=== PATIENT | female | born 1995 | race Caucasian/White ===

== ENCOUNTER 2019-01-15 13:43 | Emergency (ER) | payer BC, OTHER, SELFPAY ==
[2019-01-15 13:44] VITALS: BP 153/98; PULSE 100; RESP 16; TEMP 37.3; O2SAT 100; BMI 23.8
--- NOTE | 2019-01-15 14:24 | ED.DCSUM_ITS ---
- ER Visit Summary Date of Service: 01/15/19 Chief Complaint: Abdominal pain History of Present Illness: The patient is a 23 F history of ADHD. Complaining of diffuse abdominal pain. Said she had symptoms on Sunday that resolved and then returned today. Associated nausea and vomiting. No diarrhea. No fever. No constipation. No dysuria. No trauma. No prior abdominal surgeries. She denies any vaginal bleeding or discharge. Last menstrual period was approximately 1 week ago. Physical Examination: Vital signs are stable. She is afebrile. Temperature 99.2. She does not look septic or toxic. H EENT exam unremarkable. Neck nontender. Lungs clear to auscultation bilaterally. Heart regular rate rhythm rate about 95 no murmur. Abdomen soft. Nondistended. Normal bowel sounds. No peritoneal signs. Moving all 4 extremities. Calves nontender. Neurologically she is awake and alert with no focal motor deficit. Back exam nontender. Test Results: CBC normal white count of 5. Hemoglobin 14. Chemistries unremarkable gap of 8 creatinine 0.7. Liver enzymes normal. Lipase normal. UA normal. Serum brings test negative. Emergency Department Course and Treatment: Treated with IV fluids. She did not currently anything for pain or nausea. Treatment Plan: On repeat exam at 1520 patient's abdomen is benign. She has no right lower quadrant tenderness and really is not tender at this time. She is nondistended. There are no peritoneal signs. Abdomen is flat and nondistended. She and I discussed all of her normal test results. We discussed imaging which she deferred at this time. She does return if worse. Otherwise she will be instructed to follow-up with a local primary care physician. Disposition: Discharge Impression: Acute abdominal pain of uncertain etiology This note was generated with [employer] software. It may contain incorrect words, spelling, and punctuation that were not noted in review of the chart prior to signing ED Disposition - Plan for ED Patient: Referrals: Care Physician,No Primary [Primary Care Provider] -
[2019-01-15] MEDS: 0.9% Normal Saline 1,000 ML 999 ML IV (14:29)
[2019-01-15 14:31] LABS: Bacteria 0 SEEN /hpf (None Seen); Red Blood Cells-Urine 0 SEEN /hpf (0-5); White Blood Cells 0 SEEN /hpf (0-5)
[2019-01-15 14:32] LABS: Absolute Lymphocyte Count 2.01 X10^3/ul (0.83-4.51); Absolute Neutrophil Count 2.9 X10^3/uL (2.0-7.7); Basophil# 0.02 X10^3/uL; Basophil% 0.4 % (0-1); Eosinophil# 0.04 X10^3/uL; Eosinophils% 0.7 % (0-5); Hematocrit 42.3 % (37-47); Hemoglobin 14.4 g/dl (12.0-15.0); Lymphocyte # 2.01 X10^3/ul (4.0); Lymphocyte % 36.9 % (19-41); Mean Corpuscular Hgb 30.6 pg (27.0-32.0); Monocyte# 0.45 X10^3/uL; Monocyte% 8.3 % (0-10); Neutrophil # 2.91 X10^3/uL (2.7-7.7); Neutrophil % 53.5 % (47-70); Platelet Count 258 K/mm3 (150-450); RBC Distribution Width CV 12.7 % (11.6-14.6); RBC Distribution Width SD 41.4 fl (35.1-43.9); White Blood Count 5.4 K/mm3 (4.4-11.0)
[2019-01-15 14:32] LABS: Color, Urine Yellow (Yellow); Glucose, Dipstick Normal (Normal); Ketone-Dipstick Negative (Negative); Leukocyte Esterase-Dipstick Negative /ul (Negative); Nitrite-Dipstick Negative (Negative); Occult Blood-Urine Negative /ul (Negative); Protein-Dipstick Negative (Negative); Urine Bilirubin Dipstick Negative (Negative); Urine Clarity Clear (Clear); Urine Urobilinogen Normal (Normal)
[2019-01-15 14:33] LABS: POSITIVE COUNT NO; POSITIVE DIFFERENTIAL NO; POSITIVE MORPHOLOGY NO
[2019-01-15 14:42] LABS: AST(SGOT) 12 U/L (15-37); Alanine Aminotransfer ALT/SGPT 16 U/L (13-56); Albumin, Serum 4.2 g/dL (3.2-5.0); Alkaline Phosphatase 75 U/L (45-117); Anion Gap 8 (5-15); BUN 9 mg/dL (7-18); BUN/Creat Ratio 12.3 RATIO (10-20); Bilirubin, Direct 0.23 mg/dL (0.00-0.30); Calcium,Total 8.7 mg/dL (8.5-10.1); Chloride 102 mmol/L (98-107); Creatinine, Serum 0.73 mg/dL (0.55-1.02); EST Glomerular Filtration Rate 103 mL/min (>60); Est Glom Filt Rate - Afr Amer 125 mL/min (>60); Globulin 3.4 g/dL (2.2-4.2); Glucose 87 mg/dL (74-106); Lipase 77 U/L (73-393); Potassium 3.4 mmol/L (3.5-5.1); Protein, Total 7.6 g/dL (6.4-8.2); Sodium Level 138 mmol/L (136-145)
[2019-01-15 14:45] LABS: Mucous, Urine RARE /hpf (<or=2+); Squamous Epithelial Cells - UA 0-5 SEEN /hpf (5-10)
[2019-01-15 15:00] LABS: Pregnancy, Serum, hCG Quali. NEGATIVE Negative (0-9 Nonpreg)
--- NOTE | 2019-01-15 15:42 | ED.DEP ---
ED Disposition - Plan for ED Patient: Disposition: Home or Assisted Living Instructions: ED Abdominal Pain Unkn Cause Referrals: Maged Pinedo MD [STAFF PHYSICIAN] - 3-5 Days if not improving Additional Instructions: Return to the ER if increasing pain, fever or intractable vomiting. Otherwise follow-up with a local primary care physician. All your tests today including blood work and urinalysis were all normal.
[2019-01-15 15:56] VITALS: BP 118/81; PULSE 88; RESP 16; O2SAT 99
== END 2019-01-15 15:57 | disposition home or self-care (01) ==
PROVIDERS: Emergency Provider Emergency Medicine
DX: R10.9 Unspecified abdominal pain (principal); R11.2 Nausea with vomiting, unspecified; F90.9 Attention-deficit hyperactivity disorder, unspecified type; Z72.0 Tobacco use
CPT/HCPCS: 80048; 80076; 81001; 83690; 84703; 85025; 99283; J7030; A4216

== ENCOUNTER → 2020-06-10 12:52 | Outpatient (CLI) | payer OTHER, SELFPAY ==
[2020-06-10 11:59] VITALS: BMI 23.8
[2020-06-10 14:08] LABS: Absolute Lymphocyte Count 2.06 X10^3/uL (0.83-4.51); Absolute Neutrophil Count 7.8 X10^3/uL (2.0-7.7); Basophil# 0.03 X10^3/uL; Basophil% 0.3 % (0-1); Eosinophil# 0.03 X10^3/uL; Eosinophils% 0.3 % (0-5); Hematocrit 38.3 % (37-47); Hemoglobin 13.5 g/dL (12.0-15.0); Lymphocyte # 2.06 X10^3/ul (4.0); Lymphocyte % 19.4 % (19-41); Mean Corp Hgb Conc 35.2 g/dL (32-36); Mean Corpuscular Hgb 32.2 pg (27.0-32.0); Mean Corpuscular Volume 91.4 fL (81-99); Mean Platelet Vol. 11.1 fl (6.2-12.0); Monocyte# 0.62 X10^3/uL; Monocyte% 5.8 % (0-10); NRBC Flagged by Analyzer 0 % (0-5); Neutrophil # 7.82 X10^3/uL (2.7-7.7); Neutrophil % 73.6 % (47-70); Platelet Count 231 K/mm3 (150-450); RBC Distribution Width CV 11.2 % (11.6-14.6); RBC Distribution Width SD 37.6 fl (35.1-43.9); Red Blood Count 4.19 M/mm3 (4.2-5.4); White Blood Count 10.6 K/mm3 (4.4-11.0)
[2020-06-10 14:59] LABS: HIV - WCH Non-Reactive (Nonreactive); Hepatitis B Surface Antigen Non-Reactive (Nonreactive); Hepatitis C Antibody Non-Reactive (Nonreactive); Rubella IgG 110.8 IU/mL
[2020-06-10 19:18] LABS: Amphetamine Urine VISTA NEGATIVE (<1000 ng/mL); Barbiturate Urine VISTA NEGATIVE (< 200 ng/mL); Benzodiazepine Urine VISTA NEGATIVE (< 200 ng/mL); Cocaine Urine VISTA NEGATIVE (< 300 ng/mL); Ecstacy Urine VISTA NEGATIVE (< 500 ng/mL); Methadone Urine VISTA NEGATIVE (< 300 ng/mL); PCP Urine VISTA NEGATIVE (< 25 ng/mL); THC Urine VISTA NEGATIVE (< 50 ng/mL); Vista UDS pH Range 7
[2020-06-10 20:45] LABS: Chlamydia Trachomatis by PCR Negative (Negative); Neisserai gonorrhoeae by PCR Negative (Negative); Probe Check PASS; Sample Adequacy Control PASS; Specimen Processing Control PASS
[2020-06-17 02:24] LABS: Rapid Plasmin Reagin (RPR) NONREACTIVE (NONREACTIVE)
== END ==
PROVIDERS: Referring Provider Obstetrics & Gynecology; Visit Provider Obstetrics & Gynecology
DX: Z34.90 Encounter for supervision of normal pregnancy, unspecified, unspecified trimester (principal)
CPT/HCPCS: 36415; 80307; 85025; 86592; 86703; 86762; 86803; 86850; 86900; 86901; 87086; 87088; 87340; 87491; 87591

== ENCOUNTER → 2020-06-29 17:38 | Outpatient (CLI) | payer OTHER, SELFPAY ==
[2020-06-29 11:35] VITALS: BMI 23.8
== END ==
PROVIDERS: Referring Provider Obstetrics & Gynecology; Visit Provider Obstetrics & Gynecology
DX: Z11.59 Encounter for screening for other viral diseases (principal)
CPT/HCPCS: 87635; 94799; C9803; U0003

== ENCOUNTER → 2020-06-30 15:50 | Outpatient (CLI) | payer OTHER, SELFPAY ==
[2020-06-29 11:35] VITALS: BMI 23.8
--- NOTE | 2020-06-30 15:52 | US_ITS ---
STUDY: SUPERFICIAL ULTRASOUND - RIGHT AXILLA REASON FOR EXAM: Female, 25 years old. RT AXILLA MASS- X 3 DAYS SENSITIVE TECHNIQUE: A superficial ultrasound was performed with real-time and static matos-scale imaging. COMPARISON: None. FINDINGS: There is no demonstrated cystic or solid mass of the axilla. US/Ext Non Vasc Limited/Soft Tiss IMPRESSION: Negative for a discernible cystic or solid mass of the axilla. Electronically Signed: Karla Bennett MD at 19:30 EDT , Service support ,
== END ==
PROVIDERS: Referring Provider Nurse Practitioner Women's Health; Visit Provider Nurse Practitioner Women's Health
DX: R22.31 Localized swelling, mass and lump, right upper limb (principal)
CPT/HCPCS: 76882

== ENCOUNTER → 2020-08-09 13:54 | Outpatient (CLI) | payer OTHER, SELFPAY ==
[2020-08-09 11:45] VITALS: BMI 23.8
== END ==
PROVIDERS: Referring Provider Obstetrics & Gynecology; Visit Provider Obstetrics & Gynecology
DX: O26.899 Other specified pregnancy related conditions, unspecified trimester (principal); R10.9 Unspecified abdominal pain; Z3A.00 Weeks of gestation of pregnancy not specified
CPT/HCPCS: 87086

== ENCOUNTER → 2020-08-16 12:28 | Outpatient (CLI) | payer OTHER, SELFPAY ==
[2020-07-09 10:43] VITALS: BMI 23.8
[2020-08-09 11:45] VITALS: BMI 23.8
--- NOTE | 2020-08-16 12:29 | US_ITS ---
STUDY: SECOND AND THIRD TRIMESTER OBSTETRICAL ULTRASOUND REASON FOR EXAM: Female, 25 years old ANATOMY LMP: 04/01/2020. TECHNIQUE: Transabdominal TECHNICAL QUALITY: Adequate. PRIOR ULTRASOUND: None. FINDINGS: There is a single intrauterine fetus. The fetus is in a transverse lie with the head on the maternal right side. There is demonstrated cardiac activity with a heart rate of 144 bpm. There is a normal amniotic fluid volume. The largest amniotic fluid pocket measures 4.3 cm x 4.1 cm. The amniotic fluid index (KUNAL) is within normal limits. The placenta is posterior in location and is not low lying. There are Grade 0 placental changes. The cervix measures 3.6 cm in length. The adnexal regions are not visualized. BIOMETRY: BPD: 4.3 cm: 19 weeks, 0 days HC: 16.33 cm: 19 weeks, 0 days AC: 14.55 cm: 19 weeks, 6 days FL: 2.98 cm: 19 weeks, 1 days CI: 76% FL/BPD: 69% FL/HC: FL/AC: 20% HC/AC: 1.12 age by current US: 19 weeks, 2 days. LEANDRA by current US: 01/08/2021. Estimated weight: 295 grams, +/- 44 grams, 40 %. Age by LMP: 19 weeks, 3 days. LEANDRA by LMP: 01/07/2021. ANATOMY: Gender: Male Cranium: Normal lateral ventricles. Normal choroid plexus. Normal cerebellum. Normal cisterna magna. Normal face, nose and lips. Chest: Normal 4-chamber heart. Abdomen/Pelvis: Normal diaphragm. Normal stomach. Normal abdominal wall. Normal cord insertion. Normal 3 vessel cord. Minimal bilateral renal fullness measuring 1 mm. This is within normal limits. Normal bladder. Spine: Normal cervical spine. Normal thoracic spine. Normal lumbar spine. Normal sacrum. Extremities: Normal bilateral upper extremities. Normal bilateral lower extremities. US/OB Anatomy Scan IMPRESSION: Single live intrauterine gestation with a mean gestational age of 19 weeks and 2 days. Electronically Signed: Gokul Fajardo, at 14:52 EDT , Service support ,
== END ==
PROVIDERS: Referring Provider Obstetrics & Gynecology; Visit Provider Obstetrics & Gynecology
DX: O32.2XX0 Maternal care for transverse and oblique lie, not applicable or unspecified (principal); Z3A.19 19 weeks gestation of pregnancy
CPT/HCPCS: 76805

== ENCOUNTER → 2020-09-27 10:33 | Outpatient (CLI) | payer OTHER, SELFPAY ==
[2020-09-03 11:07] VITALS: BMI 23.8
[2020-09-27 11:03] LABS: Absolute Lymphocyte Count 1.84 X10^3/uL (0.83-4.51); Absolute Neutrophil Count 7.6 X10^3/uL (2.0-7.7); Basophil# 0.04 X10^3/uL; Basophil% 0.4 % (0-1); Eosinophil# 0.07 X10^3/uL; Eosinophils% 0.7 % (0-5); Hematocrit 35.6 % (37-47); Hemoglobin 11.7 g/dL (12.0-15.0); Lymphocyte # 1.84 X10^3/ul (4.0); Mean Corp Hgb Conc 32.9 g/dL (32-36); Mean Corpuscular Hgb 30.5 pg (27.0-32.0); Mean Platelet Vol. 10.3 fl (6.2-12.0); Monocyte# 0.61 X10^3/uL; NRBC Flagged by Analyzer 0 % (0-5); Neutrophil # 7.58 X10^3/uL (2.7-7.7); Neutrophil % 73.9 % (47-70); Platelet Count 224 K/mm3 (150-450); RBC Distribution Width CV 12.7 % (11.6-14.6); RBC Distribution Width SD 43.3 fl (35.1-43.9); Red Blood Count 3.83 M/mm3 (4.2-5.4); White Blood Count 10.2 K/mm3 (4.4-11.0)
[2020-09-27 11:13] LABS: Glucose Challenge Gest 1H 50g 100 mg/dL (70-140)
[2020-09-27 16:15] LABS: Amphetamine Urine VISTA NEGATIVE (<1000 ng/mL); Barbiturate Urine VISTA NEGATIVE (< 200 ng/mL); Benzodiazepine Urine VISTA NEGATIVE (< 200 ng/mL); Cocaine Urine VISTA NEGATIVE (< 300 ng/mL); Ecstacy Urine VISTA NEGATIVE (< 500 ng/mL); Methadone Urine VISTA NEGATIVE (< 300 ng/mL); PCP Urine VISTA NEGATIVE (< 25 ng/mL); THC Urine VISTA POSITIVE (< 50 ng/mL); Vista UDS pH Range 5
== END ==
PROVIDERS: Nurse Practitioner Women's Health; Referring Provider Obstetrics & Gynecology; Visit Provider Obstetrics & Gynecology
DX: O09.90 Supervision of high risk pregnancy, unspecified, unspecified trimester (principal)
CPT/HCPCS: 36415; 80307; 82950; 85025

== ENCOUNTER → 2020-10-19 17:26 | Outpatient (CLI) | payer OTHER, SELFPAY ==
[2020-09-27 11:04] VITALS: BMI 30.2
== END ==
PROVIDERS: Referring Provider Obstetrics & Gynecology; Visit Provider Obstetrics & Gynecology
DX: Z20.818 Contact with and (suspected) exposure to other bacterial communicable diseases (principal)
CPT/HCPCS: 87635; C9803; U0003

== ENCOUNTER → 2020-11-23 12:56 | Outpatient (CLI) | payer OTHER, SELFPAY ==
[2020-11-23 11:27] VITALS: BMI 33.5
[2020-11-23 13:52] LABS: Amphetamine Urine VISTA NEGATIVE (<1000 ng/mL); Barbiturate Urine VISTA NEGATIVE (< 200 ng/mL); Benzodiazepine Urine VISTA NEGATIVE (< 200 ng/mL); Cocaine Urine VISTA NEGATIVE (< 300 ng/mL); Ecstacy Urine VISTA NEGATIVE (< 500 ng/mL); Methadone Urine VISTA NEGATIVE (< 300 ng/mL); PCP Urine VISTA NEGATIVE (< 25 ng/mL); THC Urine VISTA NEGATIVE (< 50 ng/mL); Vista UDS pH Range 6
== END ==
PROVIDERS: Visit Provider Obstetrics & Gynecology
DX: Z87.898 Personal history of other specified conditions (principal)
CPT/HCPCS: 80307

== ENCOUNTER 2020-12-04 16:00 | Outpatient (CLI) | payer OTHER, SELFPAY ==
[2020-11-23 11:27] VITALS: BMI 33.5
[2020-12-04 16:19] VITALS: BMI 34.2
[2020-12-04 18:33] LABS: Bacteria 0 SEEN /hpf (None Seen); Mucous, Urine 0 SEEN /hpf (<or=2+); Red Blood Cells-Urine 0 SEEN /hpf (0-5)
[2020-12-04 18:47] LABS: Color, Urine Yellow (Yellow); Glucose, Dipstick Normal (Normal); Ketone-Dipstick Negative (Negative); Leukocyte Esterase-Dipstick 100 /ul (Negative); Nitrite-Dipstick Negative (Negative); Occult Blood-Urine Negative /ul (Negative); Protein-Dipstick Negative (Negative); Urine Bilirubin Dipstick Negative (Negative); Urine Clarity Sl. Cloudy (Clear); Urine Urobilinogen Normal (Normal)
[2020-12-04 18:57] LABS: White Blood Cells 0-5 SEEN /hpf (0-5); Yeast-Urine RARE /hpf (None Seen)
[2020-12-04 19:03] LABS: Squamous Epithelial Cells - UA 0-5 SEEN /hpf (5-10); Transitional Epithelial - Ur 0 SEEN /hpf (0-5)
--- NOTE | 2020-12-07 07:31 | OB.TRI.PN ---
Progress Notes Date of Service: 12/04/20 Progress Note: patient seen for contractions, ruled out for labor no cerivcal change, fingertip cervix. 140 moderate variability reactive no decelerations category I tracing [place]: irregular a/p dc home ft cervix dilation reviewed labor precautions Laboratory Studies: Laboratory Tests 12/04/20 Range/Units 18:20 Urine Color Yellow (Yellow) Urine Clarity Sl. Cloudy (Clear) Urine pH 7.0 (5.0 - 8.0) Ur Specific [place] 1.010 (1.002-1.030) Urine Protein Negative (Negative) mg/dl Urine Glucose (UA) Normal (Normal) mg/dl Urine Ketones Negative (Negative) mg/dl Urine Occult Blood Negative (Negative) /ul Urine Nitrite Negative (Negative) Urine Bilirubin Negative (Negative) mg/dL Urine Urobilinogen Normal (Normal) mg/dl Ur Leukocyte Esterase 100 H (Negative) /ul Urine RBC 0 SEEN (0-5) /hpf Urine WBC 0-5 SEEN (0-5) /hpf Ur Squamous Epith Cells 0-5 SEEN (5-10) /hpf Ur Transition Epith Cell 0 SEEN (0-5) /hpf Urine Bacteria 0 SEEN (None Seen) /hpf Urine Mucus 0 SEEN (<or=2+) /hpf Urine Yeast RARE (None Seen) /hpf - Problem List (1) Threatened labor Status: Acute Multi Select Codes - Urinary/Genital Urinary/Genital CPT Codes: 35398-45 non-stress test Interp
== END 2020-12-04 18:40 | disposition home or self-care (01) ==
LOC: WPOUT 16:08 → WP 16:09
PROVIDERS: Visit Provider Obstetrics & Gynecology
DX: O60.00 Preterm labor without delivery, unspecified trimester (principal); Z3A.00 Weeks of gestation of pregnancy not specified
CPT/HCPCS: 59025; 59050; 81001; 99218; G0378

== ENCOUNTER 2020-12-05 14:25 | Inpatient (IN) | payer OTHER, SELFPAY ==
[2020-12-04 16:19] VITALS: BMI 34.2
[2020-12-05] VITALS (49 sets, daily range): BP systolic 97–138; BP diastolic 54–91; PULSE 69–120; TEMP 36.1–37.8; O2SAT 91–100; BMI 33.5
[2020-12-05] MEDS: Ondansetron 8 MG Tablet 4 MG PO (04:41)
[2020-12-05] MEDS: Betamethasone/Betamethasone 30 MG/5 ML Vial 12 MG IM (04:41)
[2020-12-05] MEDS: Acetaminophen 500 MG Tablet 1000 MG PO ×2 (04:41→23:43)
[2020-12-05 06:08] LABS: ROM Internal Control Test YES-OK TO RESULT pt. (Internal QC); ROM Patient Test Negative (Negative)
[2020-12-05] MEDS: morphine 10 MG/ML Syringe 8 MG IM (06:50)
--- NOTE | 2020-12-05 09:14 | US_ITS ---
STUDY: SECOND AND THIRD TRIMESTER OBSTETRICAL ULTRASOUND - LIMITED REASON FOR EXAM: Female, 25 years old LEAKING OF FLUIDS -- NEG ROM -- GROWTH -- R/O LABOR LMP: 04/02/2020 PRIOR ULTRASOUND: 08/16/2020 TECHNIQUE: Transabdominal TECHNICAL QUALITY: Adequate. FINDINGS: There is a single intrauterine fetus. The fetus is in a cephalic presentation. There is demonstrated cardiac activity with a heart rate of 139 bpm. There is a normal amniotic fluid volume. The largest amniotic fluid pocket measures 3.6 cm. The amniotic fluid index (KUNAL) is 11.4 cm. The placenta is posterior in location and is not low lying. There are Grade 1 placental changes. The cervix measures 4.0 cm in length. BIOMETRY: BPD: 8.7 cm: 34 weeks, 6 days HC: 31.0 cm: 34 weeks, 4 days AC: 31.9 cm: 35 weeks, 5 days FL: 6.8 cm: 35 weeks, 1 days Age by LMP: 35 weeks, 2 days. LEANDRA by LMP: To 1221. age by current US: 34 weeks, 4 days. LEANDRA by current US: 01/12/2021. Estimated weight: 2719 grams, +/- 408 grams, 57 percentile. Gender: US/OB Limited With Biometrics IMPRESSION: Living intrauterine of 34 weeks 4 days as described above. Electronically Signed: Eric Camacho MD at 13:06 EST Tel , Service support ,
[2020-12-05] MEDS: Lactated Ringers 1,000 ML 999 ML IV (09:24)
--- NOTE | 2020-12-05 09:27 | OB.TRI.NOTE ---
- Problem List (1) premature rupture of membranes (PPROM) with onset of labor within 24 hours of rupture in third trimester, antepartum Status: Acute (2) Supervision of high-risk Status: Acute Qualifiers: Trimester: second trimester Qualified Code(s): O09.92 - Supervision of high risk , unspecified, second trimester Comment: PRR LEANDRA 01/07/21 boy Eitan BF Marciano (3) History of marijuana use Status: Acute Comment: quit in . random tox screens. +tox 09/27 (4) Anxiety during Status: Acute Comment: counseling encouraged, ordered vistaril PRN (5) Status: Acute Qualifiers: Weeks of gestation: 33 weeks Qualified Code(s): Z3A.33 - 33 weeks gestation of Comment: genetic, carrier, and ntd screening declined. NL anatomy History of Present Illness Reason For Visit: R/O LABOR Allergies OPIATES Adverse Reaction (Uncoded 12/05/20 03:48) Vomiting - Pertinent Past Medical History Medical History: Past Medical History (Last Reviewed 11/23/20 @ 11:27 by Joya Garrido) ADD (attention deficit disorder) Laboratory Studies: Laboratory Tests 12/05/20 Range/Units 05:45 Vag Amniotic Fld Detect Negative (Negative) Physical Exam Vitals: Vital Signs Temp Pulse BP Pulse Ox 97.5 F L 72 133/83 H 98 12/05/20 07:48 12/05/20 07:48 12/05/20 07:47 12/05/20 07:48 Impression/Plan patient monitored and then admitted for PPROM
[2020-12-05 09:36] LABS: Absolute Lymphocyte Count 0.87 X10^3/uL (0.83-4.51); Absolute Neutrophil Count 18.6 X10^3/uL (2.0-7.7); Basophil# 0.06 X10^3/uL; Basophil% 0.3 % (0-1); Eosinophil# 0.04 X10^3/uL; Eosinophils% 0.2 % (0-5); Hematocrit 38.7 % (37-47); Hemoglobin 12.8 g/dL (12.0-15.0); Lymphocyte # 0.87 X10^3/ul (4.0); Lymphocyte % 4.3 % (19-41); Mean Corp Hgb Conc 33.1 g/dL (32-36); Mean Corpuscular Hgb 28.3 pg (27.0-32.0); Mean Corpuscular Volume 85.4 fL (81-99); Monocyte# 0.31 X10^3/uL; Monocyte% 1.5 % (0-10); NRBC Flagged by Analyzer 0 % (0-5); Neutrophil # 18.64 X10^3/uL (2.7-7.7); Neutrophil % 91.8 % (47-70); Platelet Count 269 K/mm3 (150-450); RBC Distribution Width CV 12.1 % (11.6-14.6); RBC Distribution Width SD 37.5 fl (35.1-43.9); Red Blood Count 4.53 M/mm3 (4.2-5.4); White Blood Count 20.3 K/mm3 (4.4-11.0)
[2020-12-05] MEDS: HYDROmorphone 1 MG/ML Syringe IV (09:50)
[2020-12-05] MEDS: Terbutaline 1 MG/ML Vial 0.25 MG SC (09:50)
[2020-12-05] MEDS: Lactated Ringers 1,000 ML 150 ML IV (10:20)
[2020-12-05] MEDS: fentaNYL 100 MCG/2 ML Ampul 50 MCG IV (13:47)
[2020-12-05 14:25] LABS: ROM Internal Control Test YES-OK TO RESULT pt. (Internal QC)
[2020-12-05 14:26] LABS: ROM Patient Test POSITIVE (Negative)
[2020-12-05] MEDS: Lactated Ringers 500 ML 999 ML IV (14:30)
[2020-12-05] MEDS: fentaNYL-bupivacaine (epidural) 100 ML BAG EPIDURAL ×2 (15:48→19:57)
[2020-12-05] MEDS: Oxytocin 30 units/NS 500 ml 30 UNITS/500 ML IV.SOLN IV (16:50)
[2020-12-05] MEDS: Lactated Ringers 1,000 ML 200 ML IV ×2 (17:30→19:57)
[2020-12-05 18:48] LABS: Group B Strep DNA By PCR Negative (Negative); Internal Control PASS; Probe Check PASS; Specimen Processing Control PASS
--- NOTE | 2020-12-05 20:10 | HP.PCM_ITS ---
- Problem List (1) premature rupture of membranes (PPROM) with onset of labor within 24 hours of rupture in third trimester, antepartum Status: Acute (2) Supervision of high-risk Status: Acute Qualifiers: Trimester: second trimester Qualified Code(s): O09.92 - Supervision of high risk , unspecified, second trimester Comment: PRR LEANDRA 01/07/21 boy Eitan Tariq (3) History of marijuana use Status: Acute Comment: quit in . random tox screens. +tox 09/27 (4) Anxiety during Status: Acute Comment: counseling encouraged, ordered vistaril PRN (5) Status: Acute Qualifiers: Weeks of gestation: 33 weeks Qualified Code(s): Z3A.33 - 33 weeks gestation of Comment: genetic, carrier, and ntd screening declined. NL anatomy History Date of Admission: 12/05/20 Final LEANDRA: 01/07/21 Gestational age: 35 Weeks and 2 Days History of this : This is a 25 year-old, , at 35 weeks gestational age presents with regular contractions and clear rupture of membranes. Patient has had an uncomplicated until today with premature rupture of membranes. Patient has good movement and denies any fever or recent infection symptoms.. She r eceived a dose of Celestone this morning when she initially presented to triage. Medical History: Medical History (Last Reviewed 11/23/20 @ 11:27 by Joya Garrido) ADD (attention deficit disorder) F98.8 Allergies OPIATES Adverse Reaction (Uncoded 12/05/20 03:48) Vomiting Home Medications: Home Medications hydroxyzine pamoate 50 mg capsule 50 mg PO TID-QID PRN #30 cap 06/10/20 vitamin#30 30 mg iron-10 mg iron-folic acid 1 mg-omg3 capsule 1 cap PO DAILY 06/10/20 Smoking Status: Former smoker Alcohol: None Substance Use Type: Marijuana, Anxiety Medications NST - FHR Rate Baby A Baseline: 140 Variability:: Moderate Accelerations:: 15 x 15 Decelerations:: None NST Reactive:: Yes FHR Category:: Category I Uterine Activity:: q3-4 History Past Pregnancies: Past Pregnancies Delivery Date Name GA/ Weeks Outcome Route Wt Infant Sex Labor Length Anesthesia Delivery Location Provider FOB Labs: Mom's Microbiology 12/05/20 Unknown Genital vaginal Group B Streptococcus Culture - Pending 12/05/20 17:20 Mucosa - Nose SARS-CoV-2 Antigen (Rapid) - Final Mom's Problem List Problem Status Onset Code premature rupture of membranes (PPROM) with onset of labor within 24 hours of rupture in third trimester, antepartum Acute O42.013 Supervision of high-risk Acute O09.90 History of marijuana use Acute Z87.898 Anxiety during Acute O99.340, F41.9 Acute Z34.90 Mom's Labs & Results 12/05/20 12/05/20 12/05/20 05:45 09:23 09:23 WBC 20.3 H RBC 4.53 Hgb 12.8 Hct 38.7 MCV 85.4 MCH 28.3 MCHC 33.1 RDW Std Deviation 37.5 RDW Coeff of Jerald 12.1 Plt Count 269 MPV 11.0 Immature Gran % (Auto) 1.900 H Neut % (Auto) 91.8 H Lymph % (Auto) 4.3 L Emmet % (Auto) 1.5 Eos % (Auto) 0.2 Baso % (Auto) 0.3 Absolute Neuts (auto) 18.6 H Absolute Lymphs (auto) 0.87 Nucleated RBC % 0 Vag Amniotic Fld Detect Negative Group B Strep DNA Specimen Comment Blood Type B POSITIVE Antibody Screen NEGATIVE 12/05/20 12/05/20 13:30 17:20 WBC RBC Hgb Hct MCV MCH MCHC RDW Std Deviation RDW Coeff of Jerald Plt Count MPV Immature Gran % (Auto) Neut % (Auto) Lymph % (Auto) Emmet % (Auto) Eos % (Auto) Baso % (Auto) Absolute Neuts (auto) Absolute Lymphs (auto) Nucleated RBC % Vag Amniotic Fld Detect POSITIVE H Group B Strep DNA Negative Specimen Comment Not Reportable Blood Type Antibody Screen Course Did the patient receive Yes care? Labs Blood Type: B RH: POSITIVE RPR/VDRL/Syphilis Reactive Rubella status Immune HbSAg Negative Date Done: 06/10/20 Chlamydia Negative Gonorrhea Negative HIV/AIDS Non-Reactive Group B Strep: Collected on Admission Current Obstetrical History Gestational Diabetes No Incompetent Cervix No Infertility No IUGR No Macrosomia No Hypertension/Pre-eclampsia No Placenta Previa/Abruption No PTL/PROM No Uterine anomaly No Oligohydramnios No Polyhydramnios No Multiple gestation No Past Medical History Asthma No Diabetes No Hypertension No Heart disease No Mitral valve prolapse No Neurologic/Seizure disorder/ No Migraines Kidney disease No Liver disease No Varicosities No Clotting disorders/Hx of DVT No Thyroid Dysfunction No Other medical diseases No Psychiatric disorders Yes: ADD, anxiety Major trauma No Abnormal PAP smear No Sleep apnea No Mammogram in the last 2 years No Social History Marital Status: SINGLE Alleged father Marciano Hx Smoking Yes Smoking Status Former smoker Substance Use Type Marijuana,Anxiety Medications How long have you used Marijuana-17 years of age substances (years)? Anxiety medication-this What date/time did you last August use any of the above? Expected Delivery Method: Spontaneous Vaginal Review of Systems Constitutional: Denies: Fever, Malaise Eyes: Denies: Blurred vision, Vision Change HEENT: Denies: Head Aches, Visual Changes Cardiovascular: Denies: Chest Pain, Palpitations Respiratory: Denies: Cough, Shortness of Breath, Wheezing Gastrointestinal: Denies: Abdominal Pain, Diarrhea, Nausea, Vomiting Genitourinary: Denies: Dysuria, Hematuria Gynecological: Reports: Vaginal discharge Musculoskeletal: Denies: Joint Pain, Muscle pain Skin: Denies: Lesions, Rash Neurological: Denies: Blurred vision, Focal weakness, Headaches Psychiatric: Denies: Anxiety, Depression Endocrine: Denies: Heat/ Cold Intolerance Hematologic/ Lymphatic: Denies: Easy Bruising, Easy Bleeding Physical Exam Vitals: Vital Signs Temp Pulse BP Pulse Ox 99.4 F H 116 H 125/77 H 98 12/05/20 19:47 12/05/20 19:47 12/05/20 19:47 12/05/20 19:47 General: Alert, Cooperative, No apparent distress HEENT: Atraumatic, Normocephalic. Negative for: Thyromegaly, Lymphadenopathy Cardiovascular: Regular rate Lungs: Normal air movement Abdomen: Soft, Non Tender, Gravid Neurological: Deep Tendon Reflexes 2+/4 and Symmetrical, Neuro grossly intact. Negative for: Clonus [employer]: Normal external genitalia. Negative for: Vulvar lesions Estimated gestational size: Appropriate for gestational size Presentation: Cephalic Assessment/Plan All Active Problems (Last Reviewed 11/23/20 @ 11:27 by Joya Garrido) premature rupture of membranes (PPROM) with onset of labor within 24 hours of rupture in third trimester, antepartum (Acute) Supervision of high-risk (Acute) History of marijuana use (Acute) Anxiety during (Acute) (Acute) Supervision of high-risk (Resolved) Tobacco use complicating (Resolved) This is a 25 year-old, G 1P0, at 35 weeks gestational age presents with P PROM and active labor. Ampicillin azithromycin given, gentamicin also started due to borderline temp and borderline leukocytosis. No persistent fevers. Celestone given x1 for prematurity. Expectant management and Pitocin as needed.
--- NOTE | 2020-12-05 20:13 | OP.PCM_ITS ---
Problem List (1) premature rupture of membranes (PPROM) with onset of labor within 24 hours of rupture in third trimester, antepartum Status: Acute (2) Supervision of high-risk Status: Acute Qualifiers: Trimester: second trimester Qualified Code(s): O09.92 - Supervision of high risk , unspecified, second trimester Comment: PRR LEANDRA 01/07/21 boy Eitan Tariq (3) History of marijuana use Status: Acute Comment: quit in . random tox screens. +tox 09/27 (4) Anxiety during Status: Acute Comment: counseling encouraged, ordered vistaril PRN (5) Status: Acute Qualifiers: Weeks of gestation: 33 weeks Qualified Code(s): Z3A.33 - 33 weeks gestation of Comment: genetic, carrier, and ntd screening declined. NL anatomy Vaginal Delivery Maternal Presentation: Active Labor, Spontaneous Rupture of Membranes 25-year-old G1, P0 at 35 weeks with P PROM Method of Induction: Pitocin Medical Reason for Induction: Premature Rupture of Membranes Amniotic Membrane Rupture Type: Spontaneous Amniotic Fluid Description: Clear Final LEANDRA: 01/07/21 Gestational age: 35 Weeks and 2 Days Date of Procedure: 12/05/20 Pre-Operative Diagnosis: P PROM Post-Operative Diagnosis: Same Surgery/ Procedure Performed: Spontaneous Vaginal Delivery Type of Anesthesia: Epidural Description of Procedure: Patient began pushing and delivered the head in the FARHAD presentation. The head was delivered atraumatically and a loose nuchal cord ?1 was identified and the was delivered through. The anterior and posterior shoulders delivered without complication followed by the rest of the infant and the infant was placed on the maternal abdomen. Delayed cord clamping was employed for approximately 60 seconds. Cord was clamped and cut and gentle traction was applied to the cord and the placenta delivered spontaneously immediately following it was noted to be intact with three-vessel cord. The perineum and vagina were inspected and noted to have no laceration. EBL was 100 cc. Patient and infant tolerated delivery well. Presentation: FARHAD Placental Delivery Description: Spontaneous Placenta Disposition: [facility] Cord Vessel Description: 3 Vessels Cord Entanglement: Around neck x 1, loose Estimated Blood Loss: 100 A gender: Male Episiotomy Description: None Laceration: None Medications given after delivery: IV Pitocin Complications: None Multi Select Codes - Urinary/Genital Urinary/Genital CPT Codes: 19232 Vaginal Delivery [facility]
[2020-12-05] MEDS: Oxytocin 30 units/NS 500 ml 30 UNITS/500 ML IV.SOLN 334 UNITS IV (20:27)
--- NOTE | 2020-12-05 20:33 | DCINST_ITS ---
Discharge Diet: No Restrictions Discharge Activity: Return to Normal Activity, May not drive while taking narcotic pain medications., May Shower May resume sexual activity in: 4-6 weeks Call your doctor if your incision/area has: Continuous Slow Oozing, Sudden Increased Bleeding, Increased Pain/ Swelling, Increased Redness, Foul Smelling Discharge Additional Instructions: If you experience any of the following, contact your healthcare provider. * Bleeding that soaks a pad every hour for 2 hours * Fever 100.4 or higher * Unrelieved incision or abdominal pain * Swelling, redness, discharge or bleeding from your incision or episiotomy site * Your incision begins to separate * Problems urinating (including inability to urinate or burning while urinating). * Visual changes * Severe headache * Flu-like symptoms * Pain or redness in one of both of your breasts * Pain, warmth, tenderness or swelling in your legs, especially the calf area * Frequent nausea and vomiting * Symptoms of depression or anxiety If you experience any of the following, call 911 or go to the nearest Emergency Room. * Chest pain * Problems breathing * Seizure activity * Partial or complete paralysis of a body part, slurred speech, weakness or drooping of the face, or a sudden inability to walk or hold your balance Allergies/Adverse Reactions: Allergies OPIATES Adverse Reaction (Uncoded 12/05/20 03:48) Vomiting Medications to take at Discharge hydroxyzine pamoate 50 mg capsule 50 mg PO TID-QID PRN #30 cap 06/10/20 vitamin#30 30 mg iron-10 mg iron-folic acid 1 mg-omg3 capsule 1 cap PO DAILY 06/10/20 Naproxen [Naprosyn] 250 - 500 mg PO Q8H PRN PRN #30 tab 12/05/20 Oxycodone HCl/Acetaminophen [Percocet 5-325] 1 - 2 tablet PO Q6H PRN PRN 7 Days #10 tablet 12/05/20 The following prescriptions were given: Naproxen [Naprosyn] 250 - 500 mg PO Q8H PRN PRN #30 tab PRN Reason: MILD PAIN Transmission Status: Pending to [facility] Oxycodone HCl/Acetaminophen [Percocet 5-325] 1 - 2 tablet PO Q6H PRN PRN 7 Days #10 tablet PRN Reason: Pain Transmission Status: Sent to [facility] Please Follow Up With: Ailin Ceja MD - [phone] When: Call to make an appointment with your doctor in 6 weeks. If you had elevated Blood pressure or 4th degree laceration you will need to be seen in 2 weeks. Primary Care Physician: Care Physician,No Primary [Primary Care Provider] - Test Results: Test results from this visit will be discussed in further detail at your follow- up appointment, if applicable.
--- NOTE | 2020-12-05 21:24 | NURSING ---
dr chinchilla ruptured forebag 1700 12/05/20. clear fluid noted. moderate amount per previous RN.
[2020-12-05] MEDS: 0.9% Saline Lock 10 ML Syringe IV (23:09)
[2020-12-06 00:30] VITALS: BP 113/57; PULSE 107; RESP 18; TEMP 37.3
[2020-12-06 03:55] VITALS: BP 96/48; PULSE 89; RESP 16; TEMP 36.4
[2020-12-06] MEDS: Naproxen 250 MG Tablet 500 MG PO ×2 (04:25→18:28)
[2020-12-06 10:00] VITALS: BP 95/57; PULSE 88; RESP 18; TEMP 36.7; O2SAT 97
[2020-12-06] MEDS: Acetaminophen 500 MG Tablet 1000 MG PO ×2 (10:26→20:44)
[2020-12-06 13:25] VITALS: BP 97/60; PULSE 84; RESP 18; TEMP 36.7
--- NOTE | 2020-12-06 17:09 | PCM.PN.OB ---
Patient Problems: Active and Suspected Problems (Last Reviewed 11/23/20 @ 11:27 by Joya Garrido) History of marijuana use (Acute) quit in . random tox screens. +tox 09/27 Anxiety during (Acute) counseling encouraged, ordered vistaril PRN Subjective: Patient doing well without complaints. Tolerating PO. Ambulating and voiding without difficulty. feeding well. Denies chest pain, shortness of breath, calf pain/swelling, fevers, chills, lightheadedness. - Physical Exam Vitals/I&O's: Vital Signs Temp Pulse Resp BP Pulse Ox 98.1 F 88 18 95/57 L 97 12/06/20 10:00 12/06/20 10:00 12/06/20 10:00 12/06/20 10:00 12/06/20 10:00 Oxygen Delivery Method Room Air Weight: 189 lb Body Mass Index (BMI) 33.5 Intake and Output for Last 24 Hours 12/04/20 12/05/20 12/06/20 23:59 23:59 23:59 Intake Total 3801.90 / 3801.90 Output Total 1800 / 1800 650 / 650 Balance 2000. / 2000.90 -650 / -650 General: Alert, Oriented x3 Microbiology Past 72 Hours 12/05/20 17:20 Mucosa - Nose SARS-CoV-2 Antigen (Rapid) - Final Laboratory Results 12/05/20 17:20: Group B Strep DNA Negative, Specimen Comment Not Reportable Current Medications Acetaminophen (Acetaminophen 500 Mg Tablet) 1,000 mg PO Q8H PRN PRN PRN Reason: Pain Score 1-3 Last Admin: 12/06/20 10:26 Dose: 1,000 mg Documented by: Bisacodyl (Bisacodyl 10 Mg Suppository) 10 mg RECTAL UD PRN PRN Reason: If no BM Dibucaine (Dibucaine 30 Gm Tube) 1 applic TOPICAL TID PRN PRN; Protocol PRN Reason: Discomfort Hydrocortisone (Hydrocortisone 2.5% Crm) 1 applic TOPICAL TID PRN PRN; Protocol PRN Reason: Discomfort Methylergonovine Maleate (Methylergonovine 0.2 Mg/Ml Ampul) 0.2 mg IM X1 PRN PRN Reason: Excess bleeding/uterine atony Naproxen (Naproxen 250 Mg Tablet) 500 mg PO Q8H PRN PRN PRN Reason: Pain Score 1-3 Last Admin: 12/06/20 04:25 Dose: 500 mg Documented by: Ondansetron HCl (Ondansetron 4 Mg/2 Ml Vial) 4 mg IV Q4H PRN PRN PRN Reason: Nausea Oxycodone HCl (Oxycodone 5 Mg Tablet) 5 - 10 mg PO Q4H PRN PRN PRN Reason: Pain Score 4-10 Senna/Docusate Sodium (Senna/Docusate Sodium 1 Tablet) 1 - 2 tablet PO DAILY PRN PRN PRN Reason: Constipation Simethicone (Simethicone 80 Mg Tablet) 80 mg PO PCHS PRN PRN Reason: Indigestion/Stomach pain Sodium Chloride (0.9% Saline Lock 10 Ml Syringe) 5 - 15 ml IV UD PRN PRN Reason: SALINE FLUSH Last Admin: 12/05/20 23:09 Dose: 10 ml Documented by: Medical Necessity - Tobacco Use Smoking Status: Former smoker Assessment/Plan All Active Problems (Last Reviewed 11/23/20 @ 11:27 by Joya Garrido) History of marijuana use (Acute) Anxiety during (Acute) (Resolved) premature rupture of membranes (PPROM) with onset of labor within 24 hours of rupture in third trimester, antepartum (Resolved) Supervision of high-risk (Resolved) Supervision of high-risk (Resolved) Tobacco use complicating (Resolved) s/p PPD # 1 1. routine post delivery care 2. breast feeding- support given 3. rh positive 4. rubella immune
[2020-12-06 20:40] VITALS: BP 113/72; PULSE 92; RESP 16; TEMP 36.8
[2020-12-06] MEDS: Senna/Docusate Sodium 1 Tablet PO (20:44)
[2020-12-07 01:20] VITALS: BP 104/55; PULSE 87; RESP 16; TEMP 37
[2020-12-07] MEDS: Naproxen 250 MG Tablet 500 MG PO ×2 (02:41→14:11)
--- NOTE | 2020-12-07 08:02 | PCM.PN.OB ---
Patient Problems: Active and Suspected Problems (Last Reviewed 11/23/20 @ 11:27 by Joya Garrido) History of marijuana use (Acute) quit in . random tox screens. +tox 09/27 Anxiety during (Acute) counseling encouraged, ordered vistaril PRN Subjective: Patient doing well without complaints. Tolerating PO. Ambulating and voiding without difficulty. Breast feeding well. Denies chest pain, shortness of breath, calf pain/swelling, fevers, chills, lightheadedness. Baby with positive culture, need IV antibiotics. - Physical Exam Vitals/I&O's: Vital Signs Temp Pulse Resp BP Pulse Ox 98.6 F 87 16 104/55 L 97 12/07/20 01:20 12/07/20 01:20 12/07/20 01:20 12/07/20 01:20 12/06/20 10:00 Oxygen Delivery Method Room Air Weight: 189 lb Body Mass Index (BMI) 33.5 Intake and Output for Last 24 Hours 12/05/20 12/06/20 12/07/20 23:59 23:59 23:59 Intake Total 3801.90 / 3801.90 Output Total 1800 / 1800 650 / 650 Balance 2001.90 / 2000.90 -650 / -650 General: Alert, Oriented x3 Abdomen: Soft, Non Tender, Non-Distended, - - FF below U Microbiology Past 72 Hours 12/05/20 17:20 Mucosa - Nose SARS-CoV-2 Antigen (Rapid) - Final Current Medications Acetaminophen (Acetaminophen 500 Mg Tablet) 1,000 mg PO Q8H PRN PRN PRN Reason: Pain Score 1-3 Last Admin: 12/06/20 20:44 Dose: 1,000 mg Documented by: Bisacodyl (Bisacodyl 10 Mg Suppository) 10 mg RECTAL UD PRN PRN Reason: If no BM Dibucaine (Dibucaine 30 Gm Tube) 1 applic TOPICAL TID PRN PRN; Protocol PRN Reason: Discomfort Hydrocortisone (Hydrocortisone 2.5% Crm) 1 applic TOPICAL TID PRN PRN; Protocol PRN Reason: Discomfort Methylergonovine Maleate (Methylergonovine 0.2 Mg/Ml Ampul) 0.2 mg IM X1 PRN PRN Reason: Excess bleeding/uterine atony Naproxen (Naproxen 250 Mg Tablet) 500 mg PO Q8H PRN PRN PRN Reason: Pain Score 1-3 Last Admin: 12/07/20 02:41 Dose: 500 mg Documented by: Ondansetron HCl (Ondansetron 4 Mg/2 Ml Vial) 4 mg IV Q4H PRN PRN PRN Reason: Nausea Oxycodone HCl (Oxycodone 5 Mg Tablet) 5 - 10 mg PO Q4H PRN PRN PRN Reason: Pain Score 4-10 Senna/Docusate Sodium (Senna/Docusate Sodium 1 Tablet) 1 - 2 tablet PO DAILY PRN PRN PRN Reason: Constipation Last Admin: 12/06/20 20:44 Dose: 2 tablet Documented by: Simethicone (Simethicone 80 Mg Tablet) 80 mg PO PCHS PRN PRN Reason: Indigestion/Stomach pain Sodium Chloride (0.9% Saline Lock 10 Ml Syringe) 5 - 15 ml IV UD PRN PRN Reason: SALINE FLUSH Last Admin: 12/05/20 23:09 Dose: 10 ml Documented by: Medical Necessity - Tobacco Use Smoking Status: Former smoker Assessment/Plan All Active Problems (Last Reviewed 11/23/20 @ 11:27 by Joya Garrido) Threatened labor (Acute) History of marijuana use (Acute) Anxiety during (Acute) (Resolved) premature rupture of membranes (PPROM) with onset of labor within 24 hours of rupture in third trimester, antepartum (Resolved) Supervision of high-risk (Resolved) Supervision of high-risk (Resolved) Tobacco use complicating (Resolved) s/p PPD # 2 1. routine post delivery care 2. breast feeding- support given 3. rh positive 4. rubella immune 5. Hotel today
[2020-12-07 08:58] VITALS: BP 109/63; PULSE 89; RESP 16; TEMP 37.4; O2SAT 100
[2020-12-07] MEDS: Acetaminophen 500 MG Tablet 1000 MG PO (10:58)
[2020-12-07 14:01] VITALS: BP 108/64; PULSE 96; RESP 16; TEMP 36.8; O2SAT 99
[2020-12-07] MEDS: Senna/Docusate Sodium 1 Tablet PO (17:55)
--- NOTE | 2020-12-08 16:30 | CASEMGMT ---
Social Work Assessment Labor and Delivery Unit Patient Address: [address] [place] [address], [place] [id number] Phone number: [phone] Date of Referral: 12/06/2020 Time of Referral: 34 Referred By: Dr. Ailin Ceja Date of Intervention: 12/08/2020 Reason for Referral: Maternal history of marijuana use and history of ADD. History obtained from: Medical records and mother of baby (MOB) Cat Mackenzie Household composition: MOB and the father of baby (FOB) live together in a home. MOB reports home situation is safe and adequate. Patient's parent/guardian status: KATY is a 25-year-old single female involved with FOB Marciano Madrid for 2 years. MOB denies any form of abuse, control, or intimidation in this relationship. baby is the first child for both. baby is little boy by the name of Eitan Madrid, born on [birth year]/2020. Medical History: KATY is 1, para 0 now 1 after delivering Eitan. care started at 9 weeks gestation and regular thereafter. Delivery occurred at 35 weeks. weighed 5 pounds 14 ounces at . Apgars 8 and 9 at 1 and 5 minutes of life respectively. Educational Status: KATY is a high school diploma and some college classes. No issues with reading, writing, or learning comprehension reported or endorsed. Financial Status: KATY and the FOB both work at [employer]. No reported issues with finances. Supplies: MOB reports to have all needed supplies for the baby including a bassinet for sleeping, a pack and play, car seat, clothing, diapers, wipes. KATY is planning to breast-feed. Childcare/Caregiver(s): MOB will be the primary caregiver. FOB will help at home from work. Transportation: KATY denies any issues with transportation. Both parents drive. Programs/Agencies Involved: KATY is reports to be an active client at the counseling center seen Chevy Lorenz[facility] and psychiatric services. MOB denies any other agency involvement. Accepted information on WIC and help me grow. Children Services/Legal Issues: No reported history. Behavioral Health Issues: Mental Health History: MOB reports history of ADD and anxiety. MOB reports she typically takes a medication called Mydayis for the ADD. MOB reports plan to get back on this medication now that she is no longer , if this is what suggested by the counseling center. MOB was prescribed Vistaril during this to use as needed. No reports of any history of suicidal ideation or thoughts of harming others. Substance Use History: MOB reports history of alcohol use issues, but got sober prior to getting . MOB reports that the FOB was a big factor in MOB getting sober. MOB does have a history of using marijuana since the age of 17 with last reported use in August. MOB denies any other history of drug abuse such as heroin, meth, cocaine, or prescription drug abuse. MOB does have a history of smoking tobacco. Drug Screens: Maternal drug screen negative on 06/10/2020, positive for marijuana on 09/27/2020, negative on 11/23/2020. 's urine drug screen positive for opiates on 12/05/2020. From chart review it appears that MOB was given IM morphine on the morning of 12/05/2019 as well as Dilaudid.*MOB denies any opiate use during this .* Meconium drug screen for baby is pending. Family/Social Stressors: No reported stressors other than Covid pandemic. MOB does have a history of substance use issues, not currently in treatment for that. MOB however is in treatment for emotional health issues. Support Systems: MOB reports strong support from the FOB, MOB mother, MOB sisters, and FOB's parents. MOB reports she will have plenty of help upon home-going with the baby. Depression/Shaken Baby/Safe Sleeping information provided on shaken baby prevention and safe sleeping. Discussion about depression and anxiety, risk factors present, and importance of self-care and seeking help and support if symptoms arise. ASSESSMENT: Met with the MOB alone in her room. MOB pleasant and receptive to social work visit. Answered questions and were nondefensive play. Eye contact normal. Mood and affect congruent to content discussed. MOB reports to have needed supplies to care for the baby as well as adequate support at home going. MOB reports feel a loving connection to the baby already, and smiled when talking about the baby. Discussed MOB plans moving forward regarding substance use. MOB reports intent to abstain from illicit drug use. Educated to recommendation to not breast-feed if using marijuana. MOB voiced understanding. Educated MOB to the possibility of children services following up with this family depending on baby's drug screens. Allowed MOB opportunity to ask questions. MOB reports intent to follow-up with the counseling center regarding evaluation for medications regarding ADD. Accepted a [facility] resource list and packet on mood and anxiety disorders, which includes resources for additional support if needed. No voiced concerns by the nursing staff regarding mother/child bonding or interactions. Safe Plan of Care for related to substance use: Abstain from use. Should use tow picker back up again with not use in front of or around the child. Would have a sober person watch the baby. PLAN: MOB and will discharge home. Community resource information provided. Monitor for meconium drug screen results. Plan to call children services for substance exposed infant in utero. -RESHMA Livingston, KANDICE *Information documented in this assessment generated with [employer] System*
--- NOTE | 2020-12-09 14:15 | CASEMGMT ---
Social Work Labor and Delivery Unit Reason for intervention: Referral to [facility], . Spoke with Radha Parker at extension [phone]. Summary: Called [facility] and made report due to substance exposed infants. Reported positive urine drug screen in the for opiates, as well as MOB getting prescribed opiates on the morning of delivery. Reported pending meconium and maternal drug screens during . Brief maternal and infant histories provided. Plan: Mom and baby are home. Will monitor for meconium drug screen results and report to children services as indicated. -RESHMA Livingston, KANDICE *Information documented in this note generated via [employer] system*
== END 2020-12-07 17:55 | disposition home or self-care (01) | DRG 806 ==
LOC: WPOUT 14:32 → WP 14:32
PROVIDERS: Admitting Provider Obstetrics & Gynecology; Visit Provider Obstetrics & Gynecology
DX: O42.013 Preterm premature rupture of membranes, onset of labor within 24 hours of rupture, third trimester (principal); O99.12 Other diseases of the blood and blood-forming organs and certain disorders involving the immune mechanism complicating childbirth; Z37.0 Single live birth; D72.829 Elevated white blood cell count, unspecified; Z3A.35 35 weeks gestation of pregnancy; O69.81X0 Labor and delivery complicated by cord around neck, without compression, not applicable or unspecified; O99.334 Smoking (tobacco) complicating childbirth; F17.200 Nicotine dependence, unspecified, uncomplicated; F41.9 Anxiety disorder, unspecified; O99.344 Other mental disorders complicating childbirth; F98.8 Other specified behavioral and emotional disorders with onset usually occurring in childhood and adolescence
CPT/HCPCS: 36415; 59025; 59050; 76816; 84112; 85025; 86850; 86900; 86901; 87081; 87426; 87653; 96372; 99218; J7120; A4216; G0378; J0290; J0702

== ENCOUNTER → 2021-01-21 16:15 | Outpatient (CLI) | payer OTHER, SELFPAY ==
[2021-01-21 10:33] VITALS: BMI 29.0
[2021-01-25 16:13] LABS: HPV Reflexed? NOT INDICATED
== END ==
PROVIDERS: Referring Provider Obstetrics & Gynecology; Visit Provider Obstetrics & Gynecology
DX: Z12.4 Encounter for screening for malignant neoplasm of cervix (principal)
CPT/HCPCS: 88175; G0145

== ENCOUNTER 2022-01-26 13:34 | Outpatient (CLI) | payer OTHER, SELFPAY ==
[2022-01-30 22:06] LABS: Chlamydia By Nucleic Acid AMP Negative (Negative)
[2022-01-31 11:30] LABS: Gonococcus By Nucleic Acid AMP Negative (Negative)
== END 2022-01-26 23:59 | disposition home or self-care (01) ==
LOC: LABSPEC 13:36
PROVIDERS: Referring Provider Obstetrics & Gynecology; Visit Provider Obstetrics & Gynecology
DX: Z34.90 Encounter for supervision of normal pregnancy, unspecified, unspecified trimester (principal)
CPT/HCPCS: 87491; 87591

== ENCOUNTER 2022-01-31 12:13 | Outpatient (CLI) | payer OTHER, SELFPAY ==
[2022-01-31 12:50] LABS: Absolute Lymphocyte Count 2.33 X10^3/uL (0.83-4.51); Absolute Neutrophil Count 4.7 X10^3/uL (2.0-7.7); Basophil# 0.03 X10^3/uL; Basophil% 0.4 % (0-1); Eosinophil# 0.09 X10^3/uL; Eosinophils% 1.2 % (0-5); Hematocrit 40.7 % (37-47); Hemoglobin 14.2 g/dL (12.0-15.0); Lymphocyte # 2.33 X10^3/ul (0.83-4.51); Lymphocyte % 30.3 % (19-41); Mean Corp Hgb Conc 34.9 g/dL (32-36); Mean Corpuscular Hgb 31.1 pg (27.0-32.0); Mean Corpuscular Volume 89.1 fL (81-99); Mean Platelet Vol. 10.5 fl (6.2-12.0); Monocyte# 0.54 X10^3/uL; NRBC Flagged by Analyzer 0 % (0-5); Neutrophil # 4.66 X10^3/uL (2.7-7.7); Neutrophil % 60.7 % (47-70); Platelet Count 218 K/mm3 (150-450); RBC Distribution Width CV 11.9 % (11.6-14.6); RBC Distribution Width SD 38.8 fl (35.1-43.9); Red Blood Count 4.57 M/mm3 (4.2-5.4); White Blood Count 7.7 K/mm3 (4.4-11.0)
[2022-01-31 13:52] LABS: HIV - WCH Non-Reactive (Nonreactive); Hepatitis B Surface Antigen Non-Reactive (Nonreactive); Hepatitis C Antibody Non-Reactive (Nonreactive); Rubella IgG Reactive (Nonreactive); Syphilis Antibodies Non-reactive
[2022-01-31 15:10] LABS: Amphetamine Urine VISTA POSITIVE (<1000 ng/mL); Barbiturate Urine VISTA NEGATIVE (< 200 ng/mL); Benzodiazepine Urine VISTA NEGATIVE (< 200 ng/mL); Cocaine Urine VISTA NEGATIVE (< 300 ng/mL); Ecstacy Urine VISTA NEGATIVE (< 500 ng/mL); Methadone Urine VISTA NEGATIVE (< 300 ng/mL); PCP Urine VISTA NEGATIVE (< 25 ng/mL); THC Urine VISTA POSITIVE (< 50 ng/mL); Vista UDS pH Range 7
== END 2022-01-31 23:59 | disposition home or self-care (01) ==
LOC: LAB 12:14
PROVIDERS: Visit Provider Obstetrics & Gynecology
DX: Z34.90 Encounter for supervision of normal pregnancy, unspecified, unspecified trimester (principal)
CPT/HCPCS: 36415; 80307; 85025; 86703; 86762; 86780; 86803; 86850; 86900; 86901; 87086; 87340

== ENCOUNTER → 2022-05-01 | Outpatient (CLI) | payer OTHER, SELFPAY ==
[2022-05-01 13:59] LABS: Amphetamine Urine VISTA NEGATIVE (<1000 ng/mL); Barbiturate Urine VISTA NEGATIVE (< 200 ng/mL); Benzodiazepine Urine VISTA NEGATIVE (< 200 ng/mL); Cocaine Urine VISTA NEGATIVE (< 300 ng/mL); Ecstacy Urine VISTA NEGATIVE (< 500 ng/mL); Methadone Urine VISTA NEGATIVE (< 300 ng/mL); PCP Urine VISTA NEGATIVE (< 25 ng/mL); THC Urine VISTA NEGATIVE (< 50 ng/mL); Vista UDS pH Range 6
== END | disposition home or self-care (01) ==
LOC: LABSPEC 12:52
PROVIDERS: Visit Provider Nurse Practitioner Women's Health
DX: O99.322 Drug use complicating pregnancy, second trimester (principal); F12.90 Cannabis use, unspecified, uncomplicated; Z3A.15 15 weeks gestation of pregnancy
CPT/HCPCS: 80307

== ENCOUNTER → 2022-06-29 | Outpatient (CLI) | payer OTHER, SELFPAY ==
[2022-06-29 09:30] LABS: Absolute Lymphocyte Count 1.66 X10^3/uL (0.83-4.51); Absolute Neutrophil Count 7.8 X10^3/uL (2.0-7.7); Basophil# 0.03 X10^3/uL; Basophil% 0.3 % (0-1); Eosinophil# 0.11 X10^3/uL; Eosinophils% 1.1 % (0-5); Hematocrit 36.2 % (37-47); Hemoglobin 12.5 g/dL (12.0-15.0); Lymphocyte # 1.66 X10^3/ul (0.83-4.51); Lymphocyte % 16.1 % (19-41); Mean Corp Hgb Conc 34.5 g/dL (32-36); Mean Corpuscular Hgb 31.3 pg (27.0-32.0); Mean Corpuscular Volume 90.5 fL (81-99); Mean Platelet Vol. 10.4 fl (6.2-12.0); Monocyte# 0.61 X10^3/uL; Monocyte% 5.9 % (0-10); NRBC Flagged by Analyzer 0 % (0-5); Neutrophil # 7.81 X10^3/uL (2.7-7.7); Neutrophil % 75.6 % (47-70); Platelet Count 182 K/mm3 (150-450); RBC Distribution Width CV 12.4 % (11.6-14.6); White Blood Count 10.3 K/mm3 (4.4-11.0)
[2022-06-29 09:37] LABS: Glucose Challenge Gest 1H 50g 121 mg/dL (70-140)
--- NOTE | 2022-06-29 15:26 | US_ITS ---
EXAM: US , LIMITED CLINICAL INDICATION: placental placement TECHNIQUE: Real-time limited ultrasound of the maternal uterus with image documentation. This report was created using [employer] report generation technology. COMPARISON: None. FINDINGS: FETUS: Single live fetus in cephalic presentation. cardiac rate is 176 bpm. PLACENTA: Posterior placenta without previa. Inferior margin of the placenta is 2.3 cm from the internal cervical canal. AMNIOTIC FLUID: Amniotic fluid volume is normal. CERVIX: Cervix measures 4 cm in length. US/OB Limited (No Biometrics) IMPRESSION: 1. Single live treated gestation with status post gestational age of 28 weeks 2 days. 2. Posterior placenta without previa. Electronically Signed: Tobin Jauregui MD at 16:46 EDT ,
== END | disposition home or self-care (01) ==
PROVIDERS: Visit Provider Obstetrics & Gynecology
DX: O44.00 Complete placenta previa NOS or without hemorrhage, unspecified trimester (principal); Z3A.28 28 weeks gestation of pregnancy
CPT/HCPCS: 36415; 76815; 82950; 85025

== ENCOUNTER 2022-08-03 08:35 | Outpatient (CLI) | payer OTHER, SELFPAY ==
[2022-08-03 09:01] VITALS: BP 112/66; PULSE 107; TEMP 37; BMI 32.0
--- NOTE | 2022-08-03 09:28 | US_ITS ---
STUDY: SECOND AND THIRD TRIMESTER OBSTETRICAL ULTRASOUND - LIMITED REASON FOR EXAM: Female, 27 years old bleeding -- placenta check, cervical length and growth LMP: 12/13/2021. PRIOR ULTRASOUND: Comparison is made with prior study 06/29/2022. TECHNIQUE: Transabdominal and Transvaginal TECHNICAL QUALITY: Adequate. FINDINGS: There is a single intrauterine fetus. The fetus is in a cephalic presentation. There is demonstrated cardiac activity with a heart rate of 149 bpm. There is a normal amniotic fluid volume. The largest amniotic fluid pocket measures 4.2 cm. The amniotic fluid index (KUNAL) is 11.0 cm. The placenta is posterior in location and is not low lying. The tip of the placenta is at 2.7 cm from the internal os. There are Grade 1 placental changes. The cervix measures 4.9 cm in length. BIOMETRY: BPD: 8.39 cm: 33 weeks, 5 days HC: 31.4 cm: 35 weeks, 1 days AC: 29.42 cm: 33 weeks, 3 days FL: 6.28 cm: 32 weeks, 3 days Age by LMP: 33 weeks, 2 days. LEANDRA by LMP: 09/19/2022. age by current US: 34 weeks, 0 days. LEANDRA by current US: 09/14/2022. Estimated weight: 2165 grams, +/- 325 grams, 42 percentile. US/OB Limited With Biometrics IMPRESSION: Single live uterine gestation with a mean gestational age of 34 weeks. Electronically Signed: Gokul Fajardo MD at 12:51 EDT ,
[2022-08-03] MEDS: Lactated Ringers 1,000 ML 999 ML IV (09:40)
[2022-08-03 09:51] LABS: Hematocrit 36.9 % (37-47); Hemoglobin 12.4 g/dL (12.0-15.0); Mean Corp Hgb Conc 33.6 g/dL (32-36); Mean Corpuscular Hgb 29.8 pg (27.0-32.0); Mean Corpuscular Volume 88.7 fL (81-99); Mean Platelet Vol. 10.6 fl (6.2-12.0); Platelet Count 215 K/mm3 (150-450); RBC Distribution Width CV 12.5 % (11.6-14.6); RBC Distribution Width SD 40.3 fl (35.1-43.9); Red Blood Count 4.16 M/mm3 (4.2-5.4); White Blood Count 13.1 K/mm3 (4.4-11.0)
[2022-08-03 10:00] LABS: Fibrinogen 599 mg/dl (203-444)
[2022-08-03] MEDS: Betamethasone/Betamethasone 30 MG/5 ML Vial 12 MG IM (10:14)
[2022-08-03 11:46] VITALS: BP 120/68; PULSE 104; TEMP 36.6
[2022-08-03 13:24] LABS: Mucous, Urine 0 SEEN /hpf (<or=2+)
[2022-08-03 13:29] LABS: Color, Urine Yellow (Yellow); Glucose, Dipstick Normal (Normal); Ketone-Dipstick 5 mg/dl (Negative); Leukocyte Esterase-Dipstick 500 /ul (Negative); Nitrite-Dipstick Negative (Negative); Occult Blood-Urine 250 /ul (Negative); Protein-Dipstick 15 mg/dl (Negative); Urine Bilirubin Dipstick Negative (Negative); Urine Clarity Cloudy (Clear); Urine Urobilinogen Normal (Normal)
[2022-08-03 13:37] LABS: Squamous Epithelial Cells - UA 5-10 SEEN /hpf (5-10)
[2022-08-03 13:38] LABS: Bacteria 1+ /hpf (None Seen); Red Blood Cells-Urine 50-100 SEEN /hpf (0-5); White Blood Cells 50-100 SEEN /hpf (0-5)
--- NOTE | 2022-08-08 03:32 | OB.TRI.PN ---
Progress Notes Date of Service: 08/03/22 Progress Note: Patient presents for triage evaluation secondary to vb FHT: 150 Moderate variability reactive no decelerations category I tracing [place]: irregular Contractions Assessment and plan: nl us and labs, no cervical change Reactive NST, reassuring maternal and status patient discharged to home to follow-up []. See problem list details for additional plan information. Laboratory Studies: Laboratory Tests 08/03/22 08/03/22 08/03/22 Range/Units 13:10 09:40 09:40 WBC 13.1 H (4.4-11.0) K/mm3 RBC 4.16 L (4.2-5.4) M/mm3 Hgb 12.4 (12.0-15.0) g/dL Hct 36.9 L (37-47) % MCV 88.7 (81-99) fL MCH 29.8 (27.0-32.0) pg MCHC 33.6 (32-36) g/dL RDW Std Deviation 40.3 (35.1-43.9) fl RDW Coeff of Jerald 12.5 (11.6-14.6) % Plt Count 215 (150-450) K/mm3 MPV 10.6 (6.2-12.0) fl Fibrinogen (203-444) mg/dl Urine Color Yellow (Yellow) Urine Clarity Cloudy (Clear) Urine pH 7.0 (5.0 - 8.0) Ur Specific [place] 1.010 (1.002-1.030) Urine Protein 15 H (Negative) mg/dl Urine Glucose (UA) Normal (Normal) mg/dl Urine Ketones 5 H (Negative) mg/dl Urine Occult Blood 250 H (Negative) /ul Urine Nitrite Negative (Negative) Urine Bilirubin Negative (Negative) mg/dL Urine Urobilinogen Normal (Normal) mg/dl Ur Leukocyte Esterase 500 H (Negative) /ul Urine RBC 50-100 SEEN (0-5) /hpf Urine WBC 50-100 SEEN (0-5) /hpf Ur Squamous Epith Cells 5-10 SEEN (5-10) /hpf Urine Bacteria 1+ (None Seen) /hpf Urine Mucus 0 SEEN (<or=2+) /hpf Blood Type B POSITIVE Antibody Screen NEGATIVE 08/03/22 Range/Units 09:40 WBC (4.4-11.0) K/mm3 RBC (4.2-5.4) M/mm3 Hgb (12.0-15.0) g/dL Hct (37-47) % MCV (81-99) fL MCH (27.0-32.0) pg MCHC (32-36) g/dL RDW Std Deviation (35.1-43.9) fl RDW Coeff of Jerald (11.6-14.6) % Plt Count (150-450) K/mm3 MPV (6.2-12.0) fl Fibrinogen 599 H (203-444) mg/dl Urine Color (Yellow) Urine Clarity (Clear) Urine pH (5.0 - 8.0) Ur Specific [place] (1.002-1.030) Urine Protein (Negative) mg/dl Urine Glucose (UA) (Normal) mg/dl Urine Ketones (Negative) mg/dl Urine Occult Blood (Negative) /ul Urine Nitrite (Negative) Urine Bilirubin (Negative) mg/dL Urine Urobilinogen (Normal) mg/dl Ur Leukocyte Esterase (Negative) /ul Urine RBC (0-5) /hpf Urine WBC (0-5) /hpf Ur Squamous Epith Cells (5-10) /hpf Urine Bacteria (None Seen) /hpf Urine Mucus (<or=2+) /hpf Blood Type Antibody Screen Charges/Coding Multi Select Codes Visit Charges Office Visit/Consults: 63475 OV L3 Est Urinary/Genital Urinary/Genital CPT Codes: 68701-06 non-stress test Interp
== END 2022-08-03 13:40 | disposition home or self-care (01) ==
LOC: WPOUT 08:40 → WP 08:41
PROVIDERS: Referring Provider Obstetrics & Gynecology; Visit Provider Obstetrics & Gynecology
DX: O47.03 False labor before 37 completed weeks of gestation, third trimester (principal); Z3A.34 34 weeks gestation of pregnancy
CPT/HCPCS: 96360; 36415; 59025; 59050; 76816; 76817; 81001; 85027; 85384; 86850; 86900; 86901; 87086; 87088; 99218; J7120; G0378; J0702

== ENCOUNTER 2022-08-04 10:05 | Outpatient (CLI) | payer OTHER, SELFPAY ==
[2022-08-04 10:28] VITALS: BP 120/68; PULSE 100; TEMP 36.7
[2022-08-04 10:32] VITALS: BMI 34.2
[2022-08-04] MEDS: Betamethasone/Betamethasone 30 MG/5 ML Vial 12 MG IM (10:59)
[2022-08-04 12:09] VITALS: BP 141/95; PULSE 90
--- NOTE | 2022-08-08 03:41 | OB.TRI.PN ---
Progress Notes Date of Service: 08/04/22 Progress Note: celestone shot for prematuirty and vaginal bleedinfg
== END 2022-08-04 11:05 | disposition home or self-care (01) ==
LOC: WPOUT 10:11 → WP 10:12
PROVIDERS: Referring Provider Obstetrics & Gynecology; Visit Provider Obstetrics & Gynecology
DX: O26.899 Other specified pregnancy related conditions, unspecified trimester (principal); N93.9 Abnormal uterine and vaginal bleeding, unspecified; Z3A.00 Weeks of gestation of pregnancy not specified
CPT/HCPCS: 96372; 99218; G0378; J0702

== ENCOUNTER 2022-08-08 13:55 | Outpatient (CLI) | payer OTHER, SELFPAY ==
[2022-08-08 14:15] VITALS: BMI 33.3
[2022-08-08] MEDS: LACTATED RINGERS 500 ML 999 ML IV (14:44)
[2022-08-08] MEDS: Lactated Ringers 1,000 ML 125 ML IV (14:51)
[2022-08-08] MEDS: Indomethacin 25 MG Capsule 50 MG PO (14:52)
[2022-08-08 16:08] VITALS: PULSE 93; O2SAT 97
[2022-08-08 16:09] VITALS: BP 119/68; PULSE 93
[2022-08-08 16:26] LABS: Color, Urine Straw (Yellow); Glucose, Dipstick Normal (Normal); Ketone-Dipstick Negative (Negative); Leukocyte Esterase-Dipstick 500 /ul (Negative); Nitrite-Dipstick Negative (Negative); Occult Blood-Urine 10 /ul (Negative); Protein-Dipstick Negative (Negative); Specific Gravity, Urine 1.015 (1.002-1.030); Urine Bilirubin Dipstick Negative (Negative); Urine Clarity Clear (Clear); Urine Urobilinogen Normal (Normal)
--- NOTE | 2022-08-08 17:21 | HP.PCM.OB_ITS ---
HPI - General HPI Narrative ALBANIA ALFREDO, is a 27 y/o @ 34 weeks 0 days who presents to L&D after being seen in the office today for contractions. She was noted to be 1 cm dilated in the office and when she arrived on L&D she was having contractions every 2-4 minutes and still only 1 cm dilated. She has a h/o PTL and SROM at 35 weeks with her last . She was given 2 doses of steroids on /Sunday last week. Maternal Data Information LEANDRA Calculator Estimated Delivery Date Method Current WG Current Estimate 09/19/22 Ultrasound #2 34w 0d Other Estimates 09/28/22 Ultrasound #1 32w 5d PFSH PFS Medical History Acute frontal sinusitis, unspecified Acute pharyngitis, unspecified ADD (attention deficit disorder) Placenta previa Home Medications hydroxyzine pamoate 50 mg capsule (Vistaril) 50 mg PO TID-QID PRN anxiety #60 caps 07/10/22 [Rx Last Taken 08/02/22 17:30] vits no.126-ferrous fum 28 mg iron-folic acid 800 mcg tablet (Classic ) 1 tab PO DAILY 07/17/22 [History Last Taken 08/02/22 21:00] Tylenol 1,000 mg PO/SL PRN PRN Headache 08/03/22 [History Last Taken 08/02/22 12:00] miconazole nitrate 2 % vaginal cream (Monistat 7) 1 appful vaginal QHS Check with primary doctor 08/08/22 [History Last Taken 08/07/22 22:00] Allergy/AdvReac Type Severity Reaction Status Date / Time OPIATES AdvReac Vomiting Uncoded 08/04/22 10:33 Family History Unknown Heart disease Social History Smoking Status: Former smoker quit status: has quit before alcohol intake: current details: social/occasional substance use type: does not use caffeine: Yes what type of physical activity do you participate in: none seatbelt use: sometimes do you feel safe at home: Yes additional social history: Marciano[employer] History 2 Elective abortions Hx Para 1 Spontaneous abortions Hx # Term Pregnancies Ectopic pregnancies Hx # Pregnancies Multiple births # of living children 1 Past Pregnancies Del. Date Name GA/Weeks Outcome Route Bth Weight Infant Gen Labor Lgth Anesthesia Del Locatn Provider FOB 12/05/20 Rudolph 35 live - 5lbs 14oz Male epid ural [facility] SM Delivery Date: 12/05/20 Last Updated by: Claudia Domingo PPROM Visit Details Expected Delivery Route/Plan Labor Preferences- CB/BF classes: [] labor support person: [] labor intervention preferences: [] pain management options preferred: [] cut cord/dad catch: [] : [] PP control planned: [] discussed possible routes of delivery and associated risks: [] special requests: [] Plans Covid status: discussed Flu vaccine: discussed Tdap vaccine: given Rhogam: [na LARC form signed: movement and labor precautions reviewed. Problem list reviewed and updated with the most current plan of care details and appropriate orders placed. Relevant counseling for the gestational age provided. Continue routine care and follow up unless otherwise noted in visit notes/problem list details OB Flowsheet Initial Weight: 138 lb Date -?-?-?-?-?-?-?-?-?-?-?-?- EGA Weight BP Urine Prot -?-?-?-?-?-?-?-?-?-?-?-?- Glucose FHR FuHt Pres Dilation -?-?-?-?-?-?-?-?-?-?-?-?- Effaced St Visit Note 01/31/22 -?-?-?-?-?-?-?-?-?-?-?-?- 7w 0d 138 lb 2 oz (+2 oz) 104/66 -?-?-?-?-?-?-?-?-?-?-?-?- 108 -?-?-?-?-?-?-?-?-?-?-?-?- SM CRL 3.5mm GS 15 measuring 6weeks 03/01/22 -?-?-?-?-?-?-?-?-?-?-?-?- 11w 1d 143 lb 8 oz (+5 lb 8 oz) 107/74 Negative -?-?-?-?-?-?-?-?-?-?-?-?- Negative 190 -?-?-?-?-?-?-?-?-?-?-?-?- JV- new due date given with CRL today. li osman. 03/30/22 -?-?-?-?-?-?-?-?-?-?-?-?- 15w 2d 156 lb (+18 lb) 108/60 Negative -?-?-?-?-?-?-?-?-?--?-?-?- Negative 155 -?-?-?-?-?-?-?-?-?-?-?-?- SM- no vb lof go od fm n oregular ctx 05/01/22 -?-?-?-?-?-?-?-?-?-?-?-?- 19w 6d 162 lb 8 oz (+24 lb 8 oz) 110/68 Negative -?-?-?-?-?-?-?-?-?-?-?-?- Negative 161 -?-?-?-?-?-?-?-?-?-?-?-?- MH-No VB, LOF. G tiny FM. Just had anatomy scan:Boy. Told partial placenta previa. Told pelvic rest and watch for report 06/01/22 -?-?-?-?-?-?-?-?-?-?-?-?- 24w 2d 173 lb 6 oz (+35 lb 6 oz) 130/70 Negative -?-?-?-?-?-?-?-?-?-?-?-?- Negative 150 25 -?-?-?-?-?-?-?-?-?-?-?-?- SM- no vb lof go od fm no regualr ctx 06/29/22 -?-?-?-?-?-?-?-?-?-?-?-?- 28w 2d 181 lb 8 oz (+43 lb 8 oz) 105/69 Negative -?-?-?-?-?-?-?-?-?-?-?-?- Negative 155 30 -?-?-?-?-?-?-?-?-?-?-?-?- JV- normal gluco la, rpt scan is next today for placental position. no complaints. good FM 07/10/22 -?-?-?-?-?-?-?-?-?-?-?-?- 29w 6d 182 lb (+44 lb) 124/60 Negative -?-?-?-?-?-?-?-?-?-?-?-?- Negative 150 31 -?-?-?-?-?-?-?-?-?-?-?-?- SM- no vb lof go od fm no regular ctx start vistaril 07/17/22 -?-?-?-?-?-?-?-?-?-?-?-?- 30w 6d 188 lb (+50 lb) 112/84 Negative -?-?-?-?-?-?-?-?-?-?-?-?- Negative 145 31 0 -?-?-?-?-?-?-?-?-?-?-?-?- SM- no vb lof go od fm co irregular ctx 07/26/22 -?-?-?-?-?-?-?-?-?-?-?-?- 32w 1d 193 lb (+55 lb) 124/82 Negative -?-?-?-?-?-?-?-?-?-?-?-?- Negative 157 32 -?-?-?-?-?-?-?-?-?-?-?-?- JV- no complaint s today other than fatigue 08/08/22 -?-?-?-?-?-?-?-?-?-?-?-?- 34w 0d 196 lb (+58 lb) 122/80 -?-?-?-?-?-?-?-?-?-?-?-?- 1 -?-?-?-?-?-?-?-?-?-?-?-?- -Work in for C TX Q3-5 min since early AM. Good FM. To for evaluation. ROS Constitutional Constitutional: Denies change in weight, fatigue, fever(s), headache(s), poor appetite or weakness Eyes Eyes: Denies blurry vision, change in vision, seeing flashes or spots in vision ENT HEENT: Denies dizziness, headache(s), loss taste/smell or sore throat Cardiovascular Cardiovascular: Denies chest pain, dizziness, dyspnea, irregular heart rhythm, leg edema, palpitations, rapid heart rate or vomiting Respiratory/Chest Respiratory/Chest: Denies chest tightness, cough, dyspnea or breast pain Gastrointestinal Gastrointestinal: Denies abdominal pain, anorexia, constipation, cramping, diarrhea, hemorrhoids, vomiting or weight changes Genitourinary Genitourinary: Denies dysuria, flank pain, genital lesions, genital pain, urinary frequency or urinary urgency Musculoskeletal Musculoskeletal: Denies back pain, difficulty walking, joint pain, limited range of motion, muscle cramps or numbness Integumentary Integumentary: Denies lesions or unusual bruising Neurologic Neurologic: Denies abnormal movements, abnormal speech, dizziness, numbness, seizure-like activity or syncope Psychiatric Psychiatric: Denies anxiety, behavioral changes, change in appetite, change in libido, cognitive impairment, confusion, depression, difficulty concentrating, hallucinations or suicidal thoughts Endocrine Endocrinology: Denies excessive sweating, polydipsia or polyuria Hematologic/Lymphatic Hematologic/Lymphatic: Denies easy bleeding, easy bruising or lymphadenopathy Allergic/Immunologic Allergic/Immunologic: Denies itchy eyes, lip swelling, seasonal rhinorrhea, rhinitis, throat swelling, tongue swelling, eczemia, wheezing or asthma Vital Signs Vital Signs Vital Signs: 08/08/22 16:08 08/08/22 16:08 08/08/22 16:09 Pulse Rate 93 Blood Pressure 119/68 BP Systolic 119 BP Diastolic 68 Pulse Ox 97 08/08/22 16:09 Pulse Rate 93 Blood Pressure BP Systolic BP Diastolic Pulse Ox Weight Weight: 194 lb Body Mass Index (BMI) 33.3 Physical Exam Const alert, oriented x3, no apparent distress and healthy appearing General Appearance: cooperative; Negative for anxious HEENT normocephalic Face and Sinus: normal facial exam Eyes EOMs intact bilaterally and no scleral icterus General Eye: normal appearance of both eyes Neck full ROM and supple Lymph Lymphatic: no lymphadenopathy noted Chest Chest: abnormal inspection of the chest Resp normal respiratory effort Effort and Inspection: able to speak in complete sentences Cardio regular rate GI soft to palpation and non-tender Inspection: gravid Palpation: soft; Negative for tender external exam normal Back/Spine no CVA tenderness Extremity normal to inspection, full ROM and no clubbing, cyanosis or edema General Extremity: Negative for calf tenderness or edema Skin Lesions: no lesions Rashes: no rashes Psych mental status grossly normal Labs Labs Labs: Blood Type B POSITIVE Antibody Screen NEGATIVE Hct 36.9 % (37-47) L Hgb 12.4 g/dL (12.0-15.0) Obstetrics US Syphilis Total Ab Non-reactive Rubella IgG Antibody Reactive (Nonreactive) Hep Bs Antigen Non-Reactive (Nonreactive) Chlamydia DNA (KEAGAN) Negative (Negative) Neisseria gonorrhoeae DNA (KEAGAN) Negative (Negative) HIV 1&2 Antibody Non-Reactive (Nonreactive) Glucose 1 Hr 50 gm 121 mg/dL (70-140) Group B Strep DNA Negative (Negative) Rhogam given: No Assessment & Plan (1) Marijuana use: COMMENT: encouraged cessation. random tox (2) History of delivery: COMMENT: 36 week PPROM reocmmend serial cervical lengths (3) Supervision of high-risk : QUALIFIERS: Trimester: second trimester Qualified Code(s): O09.92 - Supervision of high risk , unspecified, second trimester COMMENT: PRR LEANDRA 09/26/22 Boy Trisha [facility] Eitan Marciano (4) : QUALIFIERS: Weeks of gestation: 34 weeks Qualified Code(s): Z3A.34 - 34 weeks gestation of COMMENT: nipt and carrier, ntd screen declined.anatomy nl (5) Anxiety and depression: COMMENT: prozac ordered/not taking. counseling encouraged. vistaril started 28 weeks (6) Threatened labor, antepartum: COMMENT: admitted 08/08/22 PLAN: plan to admit for observation for now. start IV Fluids, collect gbs and gc/ct give indocin 50 mg now then 25 tid procardia 10 xl now
[2022-08-08 17:41] VITALS: BP 114/62; PULSE 85
[2022-08-08] MEDS: NIFEdipine 10 MG Capsule PO (17:41)
[2022-08-08 17:58] LABS: Group B Strep DNA By PCR Negative (Negative); Internal Control PASS; Probe Check PASS; Specimen Processing Control PASS
[2022-08-08] MEDS: Ceftriaxone 1 GM/50 ML BAG IV (19:20)
[2022-08-08 19:46] VITALS: BP 109/67; PULSE 86; TEMP 36.7
[2022-08-08 20:25] LABS: Chlamydia Trachomatis by PCR Negative (Negative); Neisserai gonorrhoeae by PCR Negative (Negative); Probe Check PASS; Specimen Processing Control PASS
[2022-08-08 20:26] LABS: Sample Adequacy Control PASS
[2022-08-08] MEDS: Miconazole-7 Nitrate Cream 1 APPLIC VAGINAL (20:47)
[2022-08-08] MEDS: Indomethacin 25 MG Capsule PO (20:48)
== END 2022-08-08 21:00 | disposition home or self-care (01) ==
LOC: WPOUT 14:10 → WP 14:11
PROVIDERS: Referring Provider Obstetrics & Gynecology; Visit Provider Obstetrics & Gynecology
DX: O60.03 Preterm labor without delivery, third trimester (principal); O99.343 Other mental disorders complicating pregnancy, third trimester; F12.90 Cannabis use, unspecified, uncomplicated; Z87.891 Personal history of nicotine dependence; F41.9 Anxiety disorder, unspecified; F32.A Depression, unspecified; O99.323 Drug use complicating pregnancy, third trimester; Z3A.34 34 weeks gestation of pregnancy
CPT/HCPCS: 96365; 96361 ×4; 59025; 59050; 81002; 87081; 87086; 87088; 87426; 87491; 87591; 87653; 99218; J7120; G0378

== ENCOUNTER 2022-08-28 08:50 | Outpatient (CLI) | payer OTHER, SELFPAY ==
[2022-08-28 08:59] VITALS: BMI 34.3
[2022-08-28 09:04] VITALS: BP 125/78; PULSE 112
[2022-08-28 09:05] VITALS: TEMP 36
[2022-08-28 10:07] LABS: Hematocrit 37.8 % (37-47); Hemoglobin 12.4 g/dL (12.0-15.0); Mean Corp Hgb Conc 32.8 g/dL (32-36); Mean Corpuscular Volume 88.5 fL (81-99); Mean Platelet Vol. 10.9 fl (6.2-12.0); Platelet Count 189 K/mm3 (150-450); RBC Distribution Width CV 13.1 % (11.6-14.6); RBC Distribution Width SD 42.5 fl (35.1-43.9); Red Blood Count 4.27 M/mm3 (4.2-5.4); White Blood Count 11.3 K/mm3 (4.4-11.0)
[2022-08-28] MEDS: 0.9% Saline Lock 10 ML Syringe IV (10:33)
[2022-08-28 11:03] LABS: Fibrinogen 683 mg/dl (203-444)
--- NOTE | 2022-08-30 11:44 | PCM.PN.OB ---
Objective Data Objective Data Vital Signs: Vital Signs Temp Pulse BP 96.8 F L 112 H 125/78 H 08/28/22 09:05 08/28/22 09:04 08/28/22 09:04 Weight: 200 lb Body Mass Index (BMI) 34.3 Lab / Micro Data Result Diagrams: 08/28/22 09:45
--- NOTE | 2022-08-30 11:46 | OB.TRI.HP_ITS ---
HPI - General HPI Narrative ALBANIA ALFREDO, is a 27 F who presents with vaginal bleeding and contraction. she denies lof admits good fm. no cervical acid changer the course of several hours and ctx intensity stable. Maternal Data Information LEANDRA Calculator Estimated Delivery Date Method Current WG Current Estimate 09/19/22 Ultrasound #2 37w 1d Other Estimates 09/28/22 Ultrasound #1 35w 6d PFSH PFSH Medical History Acute frontal sinusitis, unspecified Acute pharyngitis, unspecified ADD (attention deficit disorder) Placenta previa Home Medications hydroxyzine pamoate 50 mg capsule (Vistaril) 50 mg PO TID-QID PRN anxiety #60 caps 07/10/22 [Rx Last Taken 08/27/22 17:00] vits no.126-ferrous fum 28 mg iron-folic acid 800 mcg tablet (Classic ) 1 tab PO DAILY 07/17/22 [History Last Taken 08/27/22 22:00] Tylenol 1,000 mg PO/SL PRN PRN Headache 08/03/22 [History Last Taken 08/26/22 19:00] Allergy/AdvReac Type Severity Reaction Status Date / Time Opioids - Morphine Analogues AdvReac Vomiting Verified 08/28/22 09:34 Family History Unknown Heart disease Social History Smoking Status: Former smoker quit status: has quit before alcohol intake: current details: social/occasional substance use type: does not use caffeine: Yes what type of physical activity do you participate in: none seatbelt use: sometimes do you feel safe at home: Yes additional social history: Marciano- Both works [employer] History 2 Elective abortions Hx Para 1 Spontaneous abortions Hx # Term Pregnancies Ectopic pregnancies Hx # Pregnancies Multiple births # of living children 1 Past Pregnancies Del. Date Name GA/Weeks Outcome Route Bth Weight Infant Gen Labor Lgth Anesthesia Del Locatn Provider FOB 12/05/20 Rudolph 35 live - 5lbs 14oz Male epid ural [facility] Delivery Date: 12/05/20 Last Updated by: Claudia Domingo PPROM Visit Details Expected Delivery Route/Plan Labor Preferences- CB/BF classes: [] labor support person: [] labor intervention preferences: [] pain management options preferred: [] cut cord/dad catch: [] : [] PP control planned: [] discussed possible routes of delivery and associated risks: [] special requests: [] Plans Covid status: discussed Flu vaccine: discussed Tdap vaccine: given Rhogam: [na LARC form signed: movement and labor precautions reviewed. Problem list reviewed and updated with the most current plan of care details and appropriate orders placed. Relevant counseling for the gestational age provided. Continue routine care and follow up unless otherwise noted in visit notes/problem list details OB Flowsheet Initial Weight: 138 lb Date -?-?-?-?-?-?-?-?-?-?-?-?- EGA Weight BP Urine Prot -?-?-?-?-?-?-?-?-?-?-?-?- Glucose FHR FuHt Pres Dilation -?-?-?-?-?-?-?-?-?-?-?-?- Effaced St Visit Note 01/31/22 -?-?-?-?-?-?-?-?-?-?-?-?- 7w 0d 138 lb 2 oz (+2 oz) 104/66 -?-?-?-?-?-?-?-?-?-?-?-?- 108 -?-?-?-?-?-?-?-?-?-?-?-?- SM CRL 3.5mm GS 15 measuring 6weeks 03/01/22 -?-?-?-?-?-?-?-?-?-?-?-?- 11w 1d 143 lb 8 oz (+5 lb 8 oz) 107/74 Negative -?-?-?-?-?-?-?-?-?-?-?-?- Negative 190 -?-?-?-?-?-?-?-?-?-?-?-?- JV- new due date given with CRL today. li ordered. 03/30/22 -?-?-?-?-?-?-?-?-?-?-?-?- 15w 2d 156 lb (+18 lb) 108/60 Negative -?-?-?-?-?-?-?-?-?-?-?-?- Negative 155 -?-?-?-?-?-?-?-?-?-?-?-?- SM- no vb lof go od fm n oregular ctx 05/01/22 -?-?-?-?-?-?-?-?-?-?-?-?- 19w 6d 162 lb 8 oz (+24 lb 8 oz) 110/68 Negative -?-?-?-?-?-?-?-?-?-?-?-?- Negative 161 -?-?-?-?-?-?-?-?-?-?-?-?- MH-No VB, LOF. G ood FM. Just had anatomy scan:Boy. Told partial placenta previa. Told pelvic rest and watch for report 06/01/22 -?-?-?-?--?-?-?-?-?-?-?-?- 24w 2d 173 lb 6 oz (+35 lb 6 oz) 130/70 Negative -?-?-?-?-?-?-?-?-?-?-?-?- Negative 150 25 -?-?-?-?-?-?-?-?-?-?-?-?- SM- no vb lof go od fm no regualr ctx 06/29/22 -?-?-?-?-?-?-?-?-?-?-?-?- 28w 2d 181 lb 8 oz (+43 lb 8 oz) 105/69 Negative -?-?-?-?-?-?-?-?-?-?-?-?- Negative 155 30 -?-?-?-?-?-?-?-?-?-?-?-?- JV- normal gluco la, rpt scan is next today for placental position. no complaints. good FM 07/10/22 -?-?-?-?-?-?-?-?-?-?-?-?- 29w 6d 182 lb (+44 lb) 124/60 Negative -?-?-?-?-?-?-?-?-?-?-?-?- Negative 150 31 -?-?-?-?-?-?-?-?-?-?-?-?- SM- no vb lof go od fm no regular ctx start vistaril 07/17/22 -?-?-?-?-?-?-?-?-?-?-?-?- 30w 6d 188 lb (+50 lb) 112/84 Negative -?-?-?-?-?-?-?-?-?-?-?-?- Negative 145 31 0 -?-?-?-?-?-?-?-?-?-?-?-?- SM- no vb lof go od fm co irregular ctx 07/26/22 -?-?-?-?-?-?-?-?-?-?-?-?- 32w 1d 193 lb (+55 lb) 124/82 Negative -?-?-?-?-?-?-?-?-?-?-?-?- Negative 157 32 -?-?-?-?-?-?-?-?-?-?-?-?- JV- no complaint s today other than fatigue 08/08/22 -?-?-?-?-?-?-?-?-?-?-?-?- 34w 0d 196 lb (+58 lb) 122/80 -?-?-?-?-?-?-?-?--?-?-?-?- 1 -?-?-?-?-?-?-?-?-?-?-?-?- -Work in for C TX Q3-5 min since early AM. Good FM. To for evaluation. 08/10/22 -?-?-?-?-?-?-?-?-?-?-?-?- 34w 2d 194 lb (+56 lb) 120/82 Negative -?-?-?-?-?-?-?-?-?-?-?-?- Negative 145 1 -?-?-?-?-?-?-?-?-?-?-?-?- SM- no vb lof go od fm no regular ctx 08/15/22 -?-?-?-?-?-?-?-?-?-?-?-?- 35w 0d 197 lb 8 oz (+59 lb 8 oz) 122/77 Negative -?-?-?-?-?-?-?-?-?-?-?-?- Negative 150 35 1 -?-?-?-?-?-?-?-?-?-?-?-?- 0 -3 JV- no lof , vaginal bleeding, or dec fm. PTL precautions discussed. 08/24/22 -?-?-?-?-?-?-?-?-?-?--?-?- 36w 2d 199 lb 2 oz (+61 lb 2 oz) 110/72 Negative -?-?-?-?-?-?-?-?-?-?-?-?- Negative 145 37 0.5 -?-?-?-?-?-?-?-?-?-?-?-?- -3 JV- pt s tates that she has discharge and bleeding. on exam there is a moderate to severe yeast infection. rx for terconazole cream + diflucan given. 08/28/22 -?-?--?-?-?-?-?-?-?-?-?-?- 36w 6d 200 lb (+62 lb) 125/78 -?-?-?-?-?-?-?-?-?-?-?-?- -?-?-?-?-?-?-?-?-?-?-?-?- ROS Constitutional Constitutional: Reports systems reviewed and no addt'l complaints, except as documented and as per HPI ENT HEENT: Reports systems reviewed and no addt'l complaints, except as documented Cardiovascular Cardiovascular: Reports systems reviewed and no addt'l complaints, except as documented Respiratory/Chest Respiratory/Chest: Reports systems reviewed and no addt'l complaints, except as documented Gastrointestinal Gastrointestinal: Reports as per HPI Genitourinary Genitourinary: Reports as per HPI Musculoskeletal Musculoskeletal: Reports systems reviewed and no addt'l complaints, except as documented Integumentary Integumentary: Reports systems reviewed and no addt'l complaints, except as documented Neurologic Neurologic: Reports systems reviewed and no addt'l complaints, except as documented Physical Exam Const alert, oriented x3 and no apparent distress HEENT Head and Scalp: normocephalic and atraumatic Neck full ROM and no lymphadenopathy Chest inspection of chest normal Resp normal respiratory effort GI GI Narrative: gravid, abdomen nontender, AGA Manual OB Exam: dilated, effaced and station NST FHR Rate Baby A Baseline: 140 Variability:: Moderate Accelerations:: 15 x 15 Decelerations:: None NST Reactive:: Yes FHR Category:: Category I Uterine Activity:: regular q 2-4 Assessment & Plan (1) Threatened labor, antepartum: COMMENT: s/p steroids at 33 weeks. PLAN: Plan no cervical change. nst reactive dc home ptl precautions Charges/Coding Multi Select Codes Visit Charges Office Visit/Consults: 65688 OV L3 Est Urinary/Genital Urinary/Genital CPT Codes: 69194-07 non-stress test Interp
--- NOTE | 2022-08-30 11:46 | OB.TRI.NOTE ---
HPI - General HPI Narrative ALBANIA ALFREDO, is a 27 F who presents with vaginal bleeding and contraction. she denies lof admits good fm. no cervical exchange trouble shooter the course of several hours and ctx intensity stable. Maternal Data Information LEANDRA Calculator Estimated Delivery Date Method Current WG Current Estimate 09/19/22 Ultrasound #2 37w 1d Other Estimates 09/28/22 Ultrasound #1 35w 6d PFSH PFSH Medical History Acute frontal sinusitis, unspecified Acute pharyngitis, unspecified ADD (attention deficit disorder) Placenta previa Home Medications hydroxyzine pamoate 50 mg capsule (Vistaril) 50 mg PO TID-QID PRN anxiety #60 caps 07/10/22 [Rx Last Taken 08/27/22 17:00] vits no.126-ferrous fum 28 mg iron-folic acid 800 mcg tablet (Classic ) 1 tab PO DAILY 07/17/22 [History Last Taken 08/27/22 22:00] Tylenol 1,000 mg PO/SL PRN PRN Headache 08/03/22 [History Last Taken 08/26/22 19:00] Allergy/AdvReac Type Severity Reaction Status Date / Time Opioids - Morphine Analogues AdvReac Vomiting Verified 08/28/22 09:34 Family History Unknown Heart disease Social History Smoking Status: Former smoker quit status: has quit before alcohol intake: current details: social/occasional substance use type: does not use caffeine: Yes what type of physical activity do you participate in: none seatbelt use: sometimes do you feel safe at home: Yes additional social history: Marciano- Both works [employer] History 2 Elective abortions Hx Para 1 Spontaneous abortions Hx # Term Pregnancies Ectopic pregnancies Hx # Pregnancies Multiple births # of living children 1 Past Pregnancies Del. Date Name GA/Weeks Outcome Route Bth Weight Infant Gen Labor Lgth Anesthesia Del Locatn Provider FOB 12/05/20 Rudolph 35 live - 5lbs 14oz Male epidural [facility] Delivery Date: 12/05/20 Last Updated by: Claudia Domingo PPROM Visit Details Expected Delivery Route/Plan Labor Preferences- CB/BF classes: [] labor support person: [] labor intervention preferences: [] pain management options preferred: [] cut cord/dad catch: [] : [] PP control planned: [] discussed possible routes of delivery and associated risks: [] special requests: [] Plans Covid status: discussed Flu vaccine: discussed Tdap vaccine: given Rhogam: [na LARC form signed: movement and labor precautions reviewed. Problem list reviewed and updated with the most current plan of care details and appropriate orders placed. Relevant counseling for the gestational age provided. Continue routine care and follow up unless otherwise noted in visit notes/problem list details OB Flowsheet Initial Weight: 138 lb Date <del>?</del> EGA Weight BP Urine Prot <del>?</del> Glucose FHR FuHt Pres Dilation <del>?</del> Effaced St Visit Note 01/31/22 <del>?</del> 7w 0d 138 lb 2 oz (+2 oz) 104/66 <del>?</del> 108 <del>?</del> SM CRL 3.5mm GS 15 measuring 6weeks 03/01/22 <del>?</del> 11w 1d 143 lb 8 oz (+5 lb 8 oz) 107/74 Negative <del>?</del> Negative 190 <del>?</del> JV- new due date given with CRL today. li ordered. 03/30/22 <del>?</del> 15w 2d 156 lb (+18 lb) 108/60 Negative <del>?</del> Negative 155 <del>?</del> SM- no vb lof good fm n oregular ctx 05/01/22 <del>?</del> 19w 6d 162 lb 8 oz (+24 lb 8 oz) 110/68 Negative <del>?</del> Negative 161 <del>?</del> MH-No VB, LOF. Good FM. Just had anatomy scan:Boy. Told partial placenta previa. Told pelvic rest and watch for report 06/01/22 <del>?</del> 24w 2d 173 lb 6 oz (+35 lb 6 oz) 130/70 Negative <del>?</del> Negative 150 25 <del>?</del> SM- no vb lof good fm no regualr ctx 06/29/22 <del>?</del> 28w 2d 181 lb 8 oz (+43 lb 8 oz) 105/69 Negative <del>?</del> Negative 155 30 <del>?</del> JV- normal glucola, rpt scan is next today for placental position. no complaints. good FM 07/10/22 <del>?</del> 29w 6d 182 lb (+44 lb) 124/60 Negative <del>?</del> Negative 150 31 <del>?</del> SM- no vb lof good fm no regular ctx start vistaril 07/17/22 <del>?</del> 30w 6d 188 lb (+50 lb) 112/84 Negative <del>?</del> Negative 145 31 0 <del>?</del> SM- no vb lof good fm co irregular ctx 07/26/22 <del>?</del> 32w 1d 193 lb (+55 lb) 124/82 Negative <del>?</del> Negative 157 32 <del>?</del> JV- no complaints today other than fatigue 08/08/22 <del>?</del> 34w 0d 196 lb (+58 lb) 122/80 <del>?</del> 1 <del>?</del> -Work in for CTX Q3-5 min since early AM. Good FM. To for evaluation. 08/10/22 <del>?</del> 34w 2d 194 lb (+56 lb) 120/82 Negative <del>?</del> Negative 145 1 <del>?</del> SM- no vb lof good fm no regular ctx 08/15/22 <del>?</del> 35w 0d 197 lb 8 oz (+59 lb 8 oz) 122/77 Negative <del>?</del> Negative 150 35 1 <del>?</del> 0 -3 JV- no lof, vaginal bleeding, or dec fm. PTL precautions discussed. 08/24/22 <del>?</del> 36w 2d 199 lb 2 oz (+61 lb 2 oz) 110/72 Negative <del>?</del> Negative 145 37 0.5 <del>?</del> -3 JV- pt states that she has discharge and bleeding. on exam there is a moderate to severe yeast infection. rx for terconazole cream + diflucan given. 08/28/22 <del>?</del> 36w 6d 200 lb (+62 lb) 125/78 <del>?</del> <del>?</del> ROS Constitutional Constitutional: Reports systems reviewed and no addt'l complaints, except as documented and as per HPI ENT HEENT: Reports systems reviewed and no addt'l complaints, except as documented Cardiovascular Cardiovascular: Reports systems reviewed and no addt'l complaints, except as documented Respiratory/Chest Respiratory/Chest: Reports systems reviewed and no addt'l complaints, except as documented Gastrointestinal Gastrointestinal: Reports as per HPI Genitourinary Genitourinary: Reports as per HPI Musculoskeletal Musculoskeletal: Reports systems reviewed and no addt'l complaints, except as documented Integumentary Integumentary: Reports systems reviewed and no addt'l complaints, except as documented Neurologic Neurologic: Reports systems reviewed and no addt'l complaints, except as documented Physical Exam Const alert, oriented x3 and no apparent distress HEENT Head and Scalp: normocephalic and atraumatic Neck full ROM and no lymphadenopathy Chest inspection of chest normal Resp normal respiratory effort GI GI Narrative: gravid, abdomen nontender, AGA Manual OB Exam: dilated, effaced and station NST FHR Rate Baby A Baseline: 140 Variability:: Moderate Accelerations:: 15 x 15 Decelerations:: None NST Reactive:: Yes FHR Category:: Category I Uterine Activity:: regular q 2-4 Assessment & Plan (1) Threatened labor, antepartum: COMMENT: s/p steroids at 33 weeks. PLAN: Plan no cervical change. nst reactive dc home ptl precautions Charges/Coding Multi Select Codes Visit Charges Office Visit/Consults: 16370 OV L3 Est Urinary/Genital Urinary/Genital CPT Codes: 96977-28 non-stress test Interp
== END 2022-08-28 13:03 | disposition home or self-care (01) ==
LOC: WPOUT 08:54 → WP 08:55
PROVIDERS: Referring Provider Obstetrics & Gynecology; Visit Provider Obstetrics & Gynecology
DX: O60.03 Preterm labor without delivery, third trimester (principal); Z3A.33 33 weeks gestation of pregnancy; Z87.891 Personal history of nicotine dependence
CPT/HCPCS: 36415; 59025; 59050; 85027; 85384; 86850; 86900; 86901; 99218; A4216; G0378

== ENCOUNTER 2022-08-30 16:40 | Outpatient (CLI) | payer OTHER, SELFPAY ==
[2022-08-30 16:48] VITALS: TEMP 36.8
[2022-08-30 16:51] VITALS: BP 117/70; PULSE 98
[2022-08-30 16:59] VITALS: BMI 35.1
[2022-08-30 17:55] LABS: ROM Internal Control Test YES-OK TO RESULT pt. (Internal QC); ROM Patient Test Negative (Negative)
--- NOTE | 2022-08-30 19:18 | OB.TRI.HP_ITS ---
HPI - General HPI Narrative ALBANIA ALFREDO, is a 27 F who presents with vaginal discharge (brown and sometimes pink) and worried about possible labor. She shows that nurse her pad that has a half dollar size amount of pink mucous. Maternal Data Information LEANDRA Calculator Estimated Delivery Date Method Current WG Current Estimate 09/19/22 Ultrasound #2 37w 1d Other Estimates 09/28/22 Ultrasound #1 35w 6d PFSH PFSH Medical History Acute frontal sinusitis, unspecified Acute pharyngitis, unspecified ADD (attention deficit disorder) Placenta previa Home Medications hydroxyzine pamoate 50 mg capsule (Vistaril) 50 mg PO TID-QID PRN anxiety #60 ca ps 07/10/22 [Rx Last Taken 08/30/22 17:00 50 mg] vits no.126-ferrous fum 28 mg iron-folic acid 800 mcg tablet (Classic ) 1 tab PO DAILY 07/17/22 [History Last Taken 08/30/22 17:00 1 tab] Tylenol 1,000 mg PO/SL PRN PRN Headache 08/03/22 [History Last Taken 08/26/22 19:00] Allergy/AdvReac Type Severity Reaction Status Date / Time Opioids - Morphine Analogues AdvReac Vomiting Verified 08/30/22 17:00 Family History Unknown Heart disease Social History Smoking Status: Former smoker quit status: has quit before alcohol intake: current details: social/occasional substance use type: does not use caffeine: Yes what type of physical activity do you participate in: none seatbelt use: sometimes do you feel safe at home: Yes additional social history: Marciano- Both works [employer] History 2 Elective abortions Hx Para 1 Spontaneous abortions Hx # Term Pregnancies Ectopic pregnancies Hx # Pregnancies Multiple births # of living children 1 Past Pregnancies Del. Date Name GA/Weeks Outcome Route Bth Weight Infant Gen Labor Lgth Anesthesia Del Locatn Provider FOB 12/05/20 Rudolph 35 live - 5lbs 14oz Male epid ural [facility] Delivery Date: 12/05/20 Last Updated by: Claudia Domingo PPROM Visit Details Expected Delivery Route/Plan Labor Preferences- CB/BF classes: [] labor support person: [] labor intervention preferences: [] pain management options preferred: [] cut cord/dad catch: [] : [] PP control planned: [] discussed possible routes of delivery and associated risks: [] special requests: [] Plans Covid status: discussed Flu vaccine: discussed Tdap vaccine: given Rhogam: [na LARC form signed: movement and labor precautions reviewed. Problem list reviewed and updated with the most current plan of care details and appropriate orders placed. Relevant counseling for the gestational age provided. Continue routine care and follow up unless otherwise noted in visit notes/problem list details OB Flowsheet Initial Weight: 138 lb Date -?-?-?-?-?-?-?-?-?-?-?-?- EGA Weight BP Urine Prot -?-?-?-?-?-?-?-?-?-?-?-?- Glucose FHR FuHt Pres Dilation -?-?-?-?-?-?-?-?-?-?-?-?- Effaced St Visit Note 01/31/22 -?-?-?-?-?-?-?-?-?-?-?-?- 7w 0d 138 lb 2 oz (+2 oz) 104/66 -?-?-?-?-?-?-?-?-?-?-?-?- 108 -?-?-?-?-?-?-?-?-?-?-?-?- SM CRL 3.5mm GS 15 measuring 6weeks 03/01/22 -?-?-?-?-?-?-?-?-?-?-?-?- 11w 1d 143 lb 8 oz (+5 lb 8 oz) 107/74 Negative -?-?-?-?-?-?-?--?-?-?-?-?- Negative 190 -?-?-?-?-?-?-?-?-?-?-?-?- JV- new due date given with CRL today. li ordered. 03/30/22 -?-?-?-?-?-?-?-?-?-?-?-?- 15w 2d 156 lb (+18 lb) 108/60 Negative -?-?-?-?-?-?-?-?-?-?-?-?- Negative 155 -?-?-?-?-?-?-?-?-?-?-?-?- SM- no vb lof go od fm n oregular ctx 05/01/22 -?-?-?-?-?-?-?-?-?-?-?-?- 19w 6d 162 lb 8 oz (+24 lb 8 oz) 110/68 Negative -?-?-?-?-?-?-?-?-?-?-?-?- Negative 161 -?-?-?-?-?-?-?-?-?-?-?-?- MH-No VB, LOF. G ood FM. Just had anatomy scan:Boy. Told partial placenta previa. Told pelvic rest and watch for report 06/01/22 -?-?-?-?-?-?-?-?-?-?-?-?- 24w 2d 173 lb 6 oz (+35 lb 6 oz) 130/70 Negative -?-?-?-?-?-?-?-?-?-?-?-?- Negative 150 25 -?-?-?-?-?-?-?-?-?-?-?-?- SM- no vb lof go od fm no regualr ctx 06/29/22 -?-?-?-?-?-?-?-?-?-?-?-?- 28w 2d 181 lb 8 oz (+43 lb 8 oz) 105/69 Negative -?-?-?-?-?-?-?-?-?-?-?-?- Negative 155 30 -?-?-?-?-?-?-?-?-?-?-?-?- JV- normal gluco la, rpt scan is next today for placental position. no complaints. good FM 07/10/22 -?-?-?-?-?-?-?-?-?-?-?-?- 29w 6d 182 lb (+44 lb) 124/60 Negative -?-?-?-?-?-?-?-?-?-?-?-?- Negative 150 31 -?-?-?-?-?-?-?-?-?-?-?-?- SM- no vb lof go od fm no regular ctx start vistaril 07/17/22 -?-?-?-?-?-?-?-?-?-?-?-?- 30w 6d 188 lb (+50 lb) 112/84 Negative -?-?-?-?-?-?-?-?-?-?-?-?- Negative 145 31 0 -?-?-?-?-?-?-?-?-?-?-?-?- SM- no vb lof go od fm co irregular ctx 07/26/22 -?-?-?-?-?-?-?-?-?-?-?-?- 32w 1d 193 lb (+55 lb) 124/82 Negative -?-?-?-?-?-?-?-?-?-?-?-?- Negative 157 32 -?-?-?-?-?-?-?-?-?-?-?-?- JV- no complaint s today other than fatigue 08/08/22 -?-?-?-?-?-?-?-?-?-?-?-?- 34w 0d 196 lb (+58 lb) 122/80 -?-?-?-?-?-?-?-?-?-?-?-?- 1 -?-?-?-?-?-?-?-?-?-?-?-?- -Work in for C TX Q3-5 min since early AM. Good FM. To for evaluation. 08/10/22 -?-?-?-?-?-?-?-?-?-?-?-?- 34w 2d 194 lb (+56 lb) 120/82 Negative -?-?-?-?-?-?-?-?-?-?-?-?- Negative 145 1 -?-?-?-?-?-?-?-?-?--?-?-?- SM- no vb lof go od fm no regular ctx 08/15/22 -?-?-?-?-?-?-?-?-?-?-?-?- 35w 0d 197 lb 8 oz (+59 lb 8 oz) 122/77 Negative -?-?-?-?-?-?-?-?-?-?-?-?- Negative 150 35 1 -?-?-?-?-?-?-?-?-?-?-?-?- 0 -3 JV- no lof , vaginal bleeding, or dec fm. PTL precautions discussed. 08/24/22 -?-?-?-?-?-?-?-?-?-?-?-?- 36w 2d 199 lb 2 oz (+61 lb 2 oz) 110/72 Negative -?-?-?-?-?-?-?-?-?-?-?-?- Negative 145 37 0.5 -?-?-?-?-?-?-?-?-?-?-?-?- -3 JV- pt s tates that she has discharge and bleeding. on exam there is a moderate to severe yeast infection. rx for terconazole cream + diflucan given. ROS Constitutional Constitutional: Reports systems reviewed and no addt'l complaints, except as documented Gastrointestinal Gastrointestinal: Denies bloating, constipation, cramping, diarrhea, nausea or vomiting Genitourinary Genitourinary: Reports other Details: Denies vaginal odor, vaginal bleeding, or vaginal discharge ; Denies difficulty urinating or flank pain NST FHR Rate Baby A Baseline: 140 Variability:: Moderate Accelerations:: 15 x 15 Decelerations:: None NST Reactive:: Yes FHR Category:: Category I Assessment & Plan (1) False labor: PLAN: NST reactive, cx still 1 cm and 50% per nurse recommend po hydrate and return when contractions are more consistent and stronger or if has jesse red blood. Suspect that she has a friable cervix and bleeding from past exam. (2) Marijuana use: COMMENT: encouraged cessation. random tox (3) History of delivery: COMMENT: 36 week PPROM reocmmend serial cervical lengths (4) Supervision of high-risk : QUALIFIERS: Trimester: second trimester Qualified Code(s): O09.92 - Supervision of high risk , unspecified, second trimester COMMENT: PRR LEANDRA 09/26/22 Boy [facility] Eitan Marciano (5) : QUALIFIERS: Weeks of gestation: 36 weeks Qualified Code(s): Z3A.36 - 36 weeks gestation of COMMENT: GBS neg. nipt and carrier, ntd screen declined.anatomy nl (6) Anxiety and depression: COMMENT: prozac ordered/not taking. counseling encouraged. vistaril started 28 weeks Charges/Coding Multi Select Codes Urinary/Genital Urinary/Genital CPT Codes: 40283-62 non-stress test Interp
--- NOTE | 2022-08-30 19:18 | OB.TRI.NOTE ---
HPI - General HPI Narrative ALBANIA ALFREDO, is a 27 F who presents with vaginal discharge (brown and sometimes pink) and worried about possible labor. She shows that nurse her pad that has a half dollar size amount of pink mucous. Maternal Data Information LEANDRA Calculator Estimated Delivery Date Method Current WG Current Estimate 09/19/22 Ultrasound #2 37w 1d Other Estimates 09/28/22 Ultrasound #1 35w 6d PFSH PFSH Medical History Acute frontal sinusitis, unspecified Acute pharyngitis, unspecified ADD (attention deficit disorder) Placenta previa Home Medications hydroxyzine pamoate 50 mg capsule (Vistaril) 50 mg PO TID-QID PRN anxiety #60 caps 07/10/22 [Rx Last Taken 08/30/22 17:00 50 mg] vits no.126-ferrous fum 28 mg iron-folic acid 800 mcg tablet (Classic ) 1 tab PO DAILY 07/17/22 [History Last Taken 08/30/22 17:00 1 tab] Tylenol 1,000 mg PO/SL PRN PRN Headache 08/03/22 [History Last Taken 08/26/22 19:00] Allergy/AdvReac Type Severity Reaction Status Date / Time Opioids - Morphine Analogues AdvReac Vomiting Verified 08/30/22 17:00 Family History Unknown Heart disease Social History Smoking Status: Former smoker quit status: has quit before alcohol intake: current details: social/occasional substance use type: does not use caffeine: Yes what type of physical activity do you participate in: none seatbelt use: sometimes do you feel safe at home: Yes additional social history: Marciano- Both works [employer] History 2 Elective abortions Hx Para 1 Spontaneous abortions Hx # Term Pregnancies Ectopic pregnancies Hx # Pregnancies Multiple births # of living children 1 Past Pregnancies Del. Date Name GA/Weeks Outcome Route Bth Weight Gen Labor Lgth Anesthesia Del Locatn Provider FOB 12/05/20 Rudolph 35 live - 5lbs 14oz Male epidural WC SM Delivery Date: 12/05/20 Last Updated by: Claudia Domingo PPROM Visit Details Expected Delivery Route/Plan Labor Preferences- CB/BF classes: [] labor support person: [] labor intervention preferences: [] pain management options preferred: [] cut cord/dad catch: [] : [] PP control planned: [] discussed possible routes of delivery and associated risks: [] special requests: [] Plans Covid status: discussed Flu vaccine: discussed Tdap vaccine: given Rhogam: [na LARC form signed: movement and labor precautions reviewed. Problem list reviewed and updated with the most current plan of care details and appropriate orders placed. Relevant counseling for the gestational age provided. Continue routine care and follow up unless otherwise noted in visit notes/problem list details OB Flowsheet Initial Weight: 138 lb Date <del>?</del> EGA Weight BP Urine Prot <del>?</del> Glucose FHR FuHt Pres Dilation <del>?</del> Effaced St Visit Note 01/31/22 <del>?</del> 7w 0d 138 lb 2 oz (+2 oz) 104/66 <del>?</del> 108 <del>?</del> SM CRL 3.5mm GS 15 measuring 6weeks 03/01/22 <del>?</del> 11w 1d 143 lb 8 oz (+5 lb 8 oz) 107/74 Negative <del>?</del> Negative 190 <del>?</del> JV- new due date given with CRL today. li ordered. 03/30/22 <del>?</del> 15w 2d 156 lb (+18 lb) 108/60 Negative <del>?</del> Negative 155 <del>?</del> SM- no vb lof good fm n oregular ctx 05/01/22 <del>?</del> 19w 6d 162 lb 8 oz (+24 lb 8 oz) 110/68 Negative <del>?</del> Negative 161 <del>?</del> MH-No VB, LOF. Good FM. Just had anatomy scan:Boy. Told partial placenta previa. Told pelvic rest and watch for report 06/01/22 <del>?</del> 24w 2d 173 lb 6 oz (+35 lb 6 oz) 130/70 Negative <del>?</del> Negative 150 25 <del>?</del> SM- no vb lof good fm no regualr ctx 06/29/22 <del>?</del> 28w 2d 181 lb 8 oz (+43 lb 8 oz) 105/69 Negative <del>?</del> Negative 155 30 <del>?</del> JV- normal glucola, rpt scan is next today for placental position. no complaints. good FM 07/10/22 <del>?</del> 29w 6d 182 lb (+44 lb) 124/60 Negative <del>?</del> Negative 150 31 <del>?</del> SM- no vb lof good fm no regular ctx start vistaril 07/17/22 <del>?</del> 30w 6d 188 lb (+50 lb) 112/84 Negative <del>?</del> Negative 145 31 0 <del>?</del> SM- no vb lof good fm co irregular ctx 07/26/22 <del>?</del> 32w 1d 193 lb (+55 lb) 124/82 Negative <del>?</del> Negative 157 32 <del>?</del> JV- no complaints today other than fatigue 08/08/22 <del>?</del> 34w 0d 196 lb (+58 lb) 122/80 <del>?</del> 1 <del>?</del> -Work in for CTX Q3-5 min since early AM. Good FM. To for evaluation. 08/10/22 <del>?</del> 34w 2d 194 lb (+56 lb) 120/82 Negative <del>?</del> Negative 145 1 <del>?</del> SM- no vb lof good fm no regular ctx 08/15/22 <del>?</del> 35w 0d 197 lb 8 oz (+59 lb 8 oz) 122/77 Negative <del>?</del> Negative 150 35 1 <del>?</del> 0 -3 JV- no lof, vaginal bleeding, or dec fm. PTL precautions discussed. 08/24/22 <del>?</del> 36w 2d 199 lb 2 oz (+61 lb 2 oz) 110/72 Negative <del>?</del> Negative 145 37 0.5 <del>?</del> -3 JV- pt states that she has discharge and bleeding. on exam there is a moderate to severe yeast infection. rx for terconazole cream + diflucan given. ROS Constitutional Constitutional: Reports systems reviewed and no addt'l complaints, except as documented Gastrointestinal Gastrointestinal: Denies bloating, constipation, cramping, diarrhea, nausea or vomiting Genitourinary Genitourinary: Reports other Details: Denies vaginal odor, vaginal bleeding, or vaginal discharge ; Denies difficulty urinating or flank pain NST FHR Rate Baby A Baseline: 140 Variability:: Moderate Accelerations:: 15 x 15 Decelerations:: None NST Reactive:: Yes FHR Category:: Category I Assessment & Plan (1) False labor: PLAN: NST reactive, cx still 1 cm and 50% per nurse recommend po hydrate and return when contractions are more consistent and stronger or if has jesse red blood. Suspect that she has a friable cervix and bleeding from past exam. (2) Marijuana use: COMMENT: encouraged cessation. random tox (3) History of delivery: COMMENT: 36 week PPROM reocmmend serial cervical lengths (4) Supervision of high-risk : QUALIFIERS: Trimester: second trimester Qualified Code(s): O09.92 - Supervision of high risk , unspecified, second trimester COMMENT: PRR LEANDRA 09/26/22 [facility] Eitan Marciano (5) : QUALIFIERS: Weeks of gestation: 36 weeks Qualified Code(s): Z3A.36 - 36 weeks gestation of COMMENT: GBS neg. nipt and carrier, ntd screen declined.anatomy nl (6) Anxiety and depression: COMMENT: prozac ordered/not taking. counseling encouraged. vistaril started 28 weeks Charges/Coding Multi Select Codes Urinary/Genital Urinary/Genital CPT Codes: 44049-08 non-stress test Interp
== END 2022-08-30 18:35 | disposition home or self-care (01) ==
LOC: WPOUT 16:43 → WP 16:43
PROVIDERS: Referring Provider Obstetrics & Gynecology; Visit Provider Obstetrics & Gynecology
DX: O47.9 False labor, unspecified (principal); F12.99 Cannabis use, unspecified with unspecified cannabis-induced disorder; O99.323 Drug use complicating pregnancy, third trimester; O09.92 Supervision of high risk pregnancy, unspecified, second trimester; Z3A.36 36 weeks gestation of pregnancy; Z87.891 Personal history of nicotine dependence; O99.343 Other mental disorders complicating pregnancy, third trimester; F32.A Depression, unspecified; F41.9 Anxiety disorder, unspecified
CPT/HCPCS: 59025; 59050; 84112

== ENCOUNTER 2022-08-31 22:10 | Inpatient (IN) | payer OTHER, SELFPAY ==
[2022-08-31] VITALS (12 sets, daily range): BP systolic 104–135; BP diastolic 61–85; PULSE 88–112; TEMP 36.6; O2SAT 96–98; BMI 33.7
[2022-08-31 20:01] LABS: Absolute Lymphocyte Count 1.19 X10^3/uL (0.83-4.51); Absolute Neutrophil Count 12.7 X10^3/uL (2.0-7.7); Basophil# 0.03 X10^3/uL; Basophil% 0.2 % (0-1); Hematocrit 40.9 % (37-47); Hemoglobin 13.6 g/dL (12.0-15.0); Lymphocyte # 1.19 X10^3/ul (0.83-4.51); Lymphocyte % 8.1 % (19-41); Mean Corp Hgb Conc 33.3 g/dL (32-36); Mean Corpuscular Hgb 28.9 pg (27.0-32.0); Mean Corpuscular Volume 86.8 fL (81-99); Mean Platelet Vol. 10.5 fl (6.2-12.0); Monocyte# 0.65 X10^3/uL; Monocyte% 4.4 % (0-10); NRBC Flagged by Analyzer 0 % (0-5); Neutrophil # 12.65 X10^3/uL (2.7-7.7); Neutrophil % 86.5 % (47-70); Platelet Count 216 K/mm3 (150-450); RBC Distribution Width SD 40.9 fl (35.1-43.9); Red Blood Count 4.71 M/mm3 (4.2-5.4); White Blood Count 14.6 K/mm3 (4.4-11.0)
[2022-08-31] MEDS: 0.9% Saline Lock 10 ML Syringe IV ×4 (20:14→23:14)
[2022-08-31] MEDS: Ondansetron 4 MG/2 ML Vial IV (20:15)
[2022-08-31] MEDS: HYDROmorphone 1 MG/ML Syringe IV (20:17)
[2022-08-31] MEDS: Lactated Ringers 1,000 ML 50 ML IV (22:35)
[2022-08-31] MEDS: LACTATED RINGERS 500 ML 999 ML IV (22:37)
[2022-08-31] MEDS: proCHLORPERazine 10 MG/2 ML Vial IV (23:14)
[2022-09-01] VITALS (49 sets, daily range): BP systolic 89–117; BP diastolic 54–71; PULSE 78–122; RESP 16; TEMP 35.9–37.1; O2SAT 95–98
[2022-09-01] MEDS: fentaNYL-bupivacaine (epidural) 100 ML BAG EPIDURAL (00:05)
[2022-09-01] MEDS: LACTATED RINGERS 500 ML 999 ML IV (02:39)
[2022-09-01] MEDS: Oxytocin 30 units/NS 500 ml 30 UNITS/500 ML IV.SOLN 334 UNITS IV (05:16)
--- NOTE | 2022-09-01 05:29 | HP.PCM.OB_ITS ---
HPI - General General Date of Admission: 08/31/22 HPI Narrative ALBANIA ALFREDO, is a 27 F who presents IAL with cervical change to 4-5 cm no vb lof admits good fm wants Epidural. Maternal Data Information LEANDRA Calculator Estimated Delivery Date Method Current WG Current Estimate 09/19/22 Ultrasound #2 37w 3d Other Estimates 09/28/22 [facility] History (Updated 09/01/22 @ 05:[address] Ailin Ceja MD) Acute frontal sinusitis, unspecified Acute pharyngitis, unspecified ADD (attention deficit disorder) Anxiety Depression History of pre-term labor Placenta previa Home Medications hydroxyzine pamoate 50 mg capsule (Vistaril) 50 mg PO TID-QID PRN anxiety #60 caps 07/10/22 [Rx Last Taken 08/30/22 18:00] vits no.126-ferrous fum 28 mg iron-folic acid 800 mcg tablet (Classic ) 1 tab PO DAILY 07/17/22 [History Last Taken 08/30/22 21:00] Tylenol 1,000 mg PO/SL PRN PRN Headache 08/03/22 [History Last Taken 08/27/22 08:00] Allergy/AdvReac Type Severity Reaction Status Date / Time Opioids - Morphine Analogues AdvReac Vomiting Verified 08/31/22 09:47 Family History Unknown Heart disease Social History Smoking Status: Former smoker quit status: has quit before alcohol intake: current details: social/occasional substance use type: does not use caffeine: Yes what type of physical activity do you participate in: none seatbelt use: sometimes do you feel safe at home: Yes additional social history: Marciano- Both works [employer] History 2 Elective abortions Hx Para 1 Spontaneous abortions Hx # Term Pregnancies Ectopic pregnancies Hx # Pregnancies Multiple births # of living children 1 Past Pregnancies Del. Date Name GA/Weeks Outcome Route Bth Weight Gen Labor Lgth Anesthesia Del Locatn Provider FOB 12/05/20 Rudolph 35 live - 5lbs 14oz Male epid ural [facility] SM Delivery Date: 12/05/20 Last Updated by: Claudia Domingo PPROM Visit Details Expected Delivery Route/Plan Labor Preferences- CB/BF classes: [] labor support person: [] labor intervention preferences: [] pain management options preferred: [] cut cord/dad catch: [] : [] PP control planned: [] discussed possible routes of delivery and associated risks: [] special requests: [] Plans Covid status: discussed Flu vaccine: discussed Tdap vaccine: given Rhogam: [na LARC form signed: movement and labor precautions reviewed. Problem list reviewed and updated with the most current plan of care details and appropriate orders placed. Relevant counseling for the gestational age provided. Continue routine care and follow up unless otherwise noted in visit notes/problem list details OB Flowsheet Initial Weight: 138 lb Date -?-?-?-?-?-?-?-?-?-?-?-?- EGA Weight BP Urine Prot -?-?-?-?-?-?-?-?-?-?-?-?- Glucose FHR FuHt Pres Dilation -?-?-?-?-?-?-?-?-?-?-?-?- Effaced St Visit Note 01/31/22 -?-?-?-?-?-?-?-?-?-?-?-?- 7w 0d 138 lb 2 oz (+2 oz) 104/66 -?-?-?-?-?-?-?-?-?-?-?-?- 108 -?-?-?-?-?-?-?-?-?-?-?-?- SM CRL 3.5mm GS 15 measuring 6weeks 03/01/22 -?-?-?-?-?-?-?-?-?-?-?-?- 11w 1d 143 lb 8 oz (+5 lb 8 oz) 107/74 Negative -?-?-?-?-?-?-?-?-?-?-?-?- Negative 190 -?-?-?-?-?-?-?-?-?-?-?-?- JV- new due date given with CRL today. li ordered. 03/30/22 -?-?-?-?-?-?-?-?-?-?-?-?- 15w 2d 156 lb (+18 lb) 108/60 Negative -?-?-?-?-?-?-?-?-?-?-?-?- Negative 155 -?-?-?-?-?-?-?-?-?--?-?-?- SM- no vb lof go od fm n oregular ctx 05/01/22 -?-?-?-?-?-?-?-?-?-?-?-?- 19w 6d 162 lb 8 oz (+24 lb 8 oz) 110/68 Negative -?-?-?-?-?-?-?-?-?-?-?-?- Negative 161 -?-?-?-?-?-?-?-?-?-?-?-?- MH-No VB, LOF. G ood FM. Just had anatomy scan:Boy. Told partial placenta previa. Told pelvic rest and watch for report 06/01/22 -?-?-?-?-?-?-?-?-?-?-?-?- 24w 2d 173 lb 6 oz (+35 lb 6 oz) 130/70 Negative -?-?-?-?-?-?-?-?-?-?-?-?- Negative 150 25 -?-?-?-?-?-?-?-?-?-?-?-?- SM- no vb lof go od fm no regualr ctx 06/29/22 -?-?-?-?-?-?-?-?-?-?-?-?- 28w 2d 181 lb 8 oz (+43 lb 8 oz) 105/69 Negative -?-?-?-?-?-?-?-?-?-?-?-?- Negative 155 30 -?-?-?-?-?-?-?-?-?-?-?-?- JV- normal gluco la, rpt scan is next today for placental position. no complaints. good FM 07/10/22 -?-?-?-?-?-?-?-?-?-?-?-?- 29w 6d 182 lb (+44 lb) 124/60 Negative -?-?-?-?-?-?-?-?-?-?-?-?- Negative 150 31 -?-?-?-?-?-?-?-?-?-?-?-?- SM- no vb lof go od fm no regular ctx start vistaril 07/17/22 -?-?-?-?-?-?-?-?-?-?-?-?- 30w 6d 188 lb (+50 lb) 112/84 Negative -?-?-?-?-?-?-?-?-?-?-?-?- Negative 145 31 0 -?-?-?-?-?-?-?-?-?-?-?-?- SM- no vb lof go od fm co irregular ctx 07/26/22 -?-?-?-?-?-?-?-?-?-?-?-?- 32w 1d 193 lb (+55 lb) 124/82 Negative -?-?-?-?-?-?-?-?-?-?-?-?- Negative 157 32 -?-?-?-?-?-?-?-?-?-?-?-?- JV- no complaint s today other than fatigue 08/08/22 -?-?-?-?-?-?-?-?-?-?-?-?- 34w 0d 196 lb (+58 lb) 122/80 -?-?-?-?-?-?-?-?-?-?-?-?- 1 -?-?-?-?-?-?-?-?-?-?-?-?- -Work in for C TX Q3-5 min since early AM. Good FM. To for evaluation. 08/10/22 -?-?-?-?-?-?-?-?-?-?-?-?- 34w 2d 194 lb (+56 lb) 120/82 Negative -?-?-?-?-?-?-?-?-?-?-?-?- Negative 145 1 -?-?-?-?-?-?-?-?-?-?-?-?- SM- no vb lof go od fm no regular ctx 08/15/22 -?-?-?-?-?-?-?-?-?-?-?-?- 35w 0d 197 lb 8 oz (+59 lb 8 oz) 122/77 Negative -?-?-?-?-?-?-?-?-?-?-?-?- Negative 150 35 1 -?-?-?-?-?-?-?-?-?-?-?-?- 0 -3 JV- no lof , vaginal bleeding, or dec fm. PTL precautions discussed. 08/24/22 -?-?-?-?-?-?-?-?-?-?-?-?- 36w 2d 199 lb 2 oz (+61 lb 2 oz) 110/72 Negative -?-?-?-?-?-?-?-?-?-?-?-?- Negative 145 37 0.5 -?-?-?-?-?-?-?-?-?-?-?-?- -3 JV- pt s tates that she has discharge and bleeding. on exam there is a moderate to severe yeast infection. rx for terconazole cream + diflucan given. 08/31/22 -?-?-?-?-?-?-?-?-?-?-?-?- 37w 2d 200 lb 2 oz (+62 lb 2 oz) 110/71 Negative -?-?-?-?-?-?-?-?-?-?-?-?- Negative 147 38 Cephalic 3 -?-?-?-?-?-?-?-?-?-?-?-?- 70 -2 JV- pt has bloody show again today and is tearful. NST performed and labor precautions discussed. since no bright red blood, pt reassured. 08/31/22 -?-?-?-?-?-?-?-?-?-?-?-?- 37w 2d 104/71 120/85 118/66 107/61 106/62 107/59 106/63 110/66 110/71 108/64 89/54 97/59 112/69 108/56 -?-?-?-?-?-?-?-?-?-?-?-?- -?-?-?-?-?-?-?-?-?-?-?-?- NST FHR Rate Baby A Baseline: 140 Variability:: Moderate Accelerations:: 15 x 15 Decelerations:: None NST Reactive:: Yes FHR Category:: Category I Uterine Activity:: q3-5 ROS Constitutional Constitutional: Reports systems reviewed and no addt'l complaints, except as documented ENT HEENT: Reports systems reviewed and no addt'l complaints, except as documented Cardiovascular Cardiovascular: Reports systems reviewed and no addt'l complaints, except as documented Respiratory/Chest Respiratory/Chest: Reports systems reviewed and no addt'l complaints, except as documented Gastrointestinal Gastrointestinal: Reports systems reviewed and no addt'l complaints, except as documented and nausea; Denies abdominal pain Genitourinary Genitourinary: Reports systems reviewed and no addt'l complaints, except as documented, contractions Details: present and frequency (regular ) and movement Details: present Musculoskeletal Musculoskeletal: Reports systems reviewed and no addt'l complaints, except as documented Integumentary Integumentary: Reports as per HPI Neurologic Neurologic: Reports systems reviewed and no addt'l complaints, except as documented Endocrine Endocrinology: Reports systems reviewed and no addt'l complaints, except as documented Vital Signs Vital Signs Vital Signs: 08/31/22 17:20 08/31/22 17:20 08/31/22 17:21 Temperature Temperature Source Pulse Rate 112 H Blood Pressure 135/80 H BP Systolic 135 BP Diastolic 80 Pulse Ox 98 08/31/22 17:21 08/31/22 17:20 08/31/22 17:20 Temperature 97.8 F Temperature Source Temporal Pulse Rate 106 H Blood Pressure BP Systolic BP Diastolic Pulse Ox 08/31/22 22:41 08/31/22 22:41 08/31/22 22:41 Temperature Temperature Source Pulse Rate 90 88 Blood Pressure 104/71 BP Systolic 104 BP Diastolic 71 Pulse Ox 08/31/22 22:41 08/31/22 22:46 08/31/22 22:46 Temperature Temperature Source Pulse Rate 93 Blood Pressure BP Systolic BP Diastolic Pulse Ox 98 97 08/31/22 22:51 08/31/22 22:51 08/31/22 23:38 Temperature Temperature Source Pulse Rate 94 104 H Blood Pressure BP Systolic BP Diastolic Pulse Ox 97 08/31/22 23:38 08/31/22 23:44 08/31/22 23:44 Temperature Temperature Source Pulse Rate 106 H Blood Pressure 120/85 H BP Systolic 120 BP Diastolic 85 Pulse Ox 97 08/31/22 23:43 08/31/22 23:48 08/31/22 23:48 Temperature Temperature Source Pulse Rate 112 H Blood Pressure BP Systolic BP Diastolic Pulse Ox 98 97 08/31/22 23:50 08/31/22 23:50 08/31/22 23:54 Temperature Temperature Source Pulse Rate 102 H Blood Pressure 118/66 107/61 BP Systolic 118 107 BP Diastolic 66 61 Pulse Ox 08/31/22 23:54 08/31/22 23:54 08/31/22 23:59 Temperature Temperature Source Pulse Rate 94 Blood Pressure 106/62 BP Systolic 106 BP Diastolic 62 Pulse Ox 96 08/31/22 23:59 08/31/22 23:59 09/01/22 00:04 Temperature Temperature Source Pulse Rate 96 Blood Pressure 107/59 L BP Systolic 107 BP Diastolic 59 Pulse Ox 97 09/01/22 00:04 09/01/22 00:04 09/01/22 00:04 Temperature Temperature Source Pulse Rate 90 98 Blood Pressure BP Systolic BP Diastolic Pulse Ox 97 09/01/22 00:09 09/01/22 00:09 09/01/22 00:09 Temperature Temperature Source Pulse Rate 90 Blood Pressure 106/63 BP Systolic 106 BP Diastolic 63 Pulse Ox 97 09/01/22 00:14 09/01/22 00:14 09/01/22 00:14 Temperature Temperature Source Pulse Rate 90 Blood Pressure 110/66 BP Systolic 110 BP Diastolic 66 Pulse Ox 98 09/01/22 00:18 09/01/22 00:18 09/01/22 00:19 Temperature 97.5 F L Temperature Source Temporal Pulse Rate Blood Pressure 110/71 BP Systolic 110 BP Diastolic 71 Pulse Ox 09/01/22 00:19 09/01/22 00:50 09/01/22 00:50 Temperature Temperature Source Pulse Rate 90 92 Blood Pressure 108/64 BP Systolic 108 BP Diastolic 64 Pulse Ox 09/01/22 00:50 09/01/22 02:29 09/01/22 02:30 Temperature 97.0 F L Temperature Source Temporal Pulse Rate Blood Pressure 89/54 L BP Systolic 89 BP Diastolic 54 Pulse Ox 09/01/22 02:30 09/01/22 02:29 09/01/22 02:31 Temperature 97.4 F L Temperature Source Pulse Rate 78 Blood Pressure 97/59 L BP Systolic 97 BP Diastolic 59 Pulse Ox 09/01/22 02:31 09/01/22 02:31 09/01/22 02:54 Temperature Temperature Source Pulse Rate 88 Blood Pressure 112/69 BP Systolic 112 BP Diastolic 69 Pulse Ox 95 09/01/22 02:54 09/01/22 03:55 09/01/22 03:56 Temperature Temperature Source Temporal Pulse Rate 100 Blood Pressure 108/56 L BP Systolic 108 BP Diastolic 56 Pulse Ox 09/01/22 03:56 09/01/22 03:55 Temperature 97.9 F Temperature Source Pulse Rate 96 Blood Pressure BP Systolic BP Diastolic Pulse Ox Weight Weight: 196 lb 6.91 oz Body Mass Index (BMI) 33.7 Physical Exam Const alert, oriented x3 and healthy appearing Constitutional Narrative: uncomfortable with contractions HEENT normocephalic and moist oral mucous membranes Head and Scalp: atraumatic Neck full ROM, no lymphadenopathy, supple and thyroid normal General: trachea midline Thyroid: thyroid normal Lymph Lymphatic: no lymphadenopathy noted Chest inspection of chest normal Resp normal respiratory effort Cardio regular rate GI normal to inspection, nondistended, normoactive bowel sounds, soft to palpation and non-tender Inspection: gravid external exam normal Bimanual Exam - Vag & Uterus: uterus non-tender Manual OB Exam: estimated gestational size appropriate, presentation cephalic, dilated, effaced and station Extremity normal to inspection General Extremity: Negative for edema Skin no rashes or lesions noted Neuro deep tendon reflexes 2+ bilaterally Motor Exam: strength 5/5 throughout and clonus absent Psych mental status grossly normal Labs Labs Labs: Blood Type B POSITIVE Antibody Screen NEGATIVE Hct 40.9 % (37-47) Hgb 13.6 g/dL (12.0-15.0) Obstetrics US Syphilis Total Ab Non-reactive Rubella IgG Antibody Reactive (Nonreactive) Hep Bs Antigen Non-Reactive (Nonreactive) Chlamydia DNA ([place]) Negative (Negative) Neisseria gonorrhoeae DNA ([place]) Negative (Negative) HIV 1&2 Antibody Non-Reactive (Nonreactive) Glucose 1 Hr 50 gm 121 mg/dL (70-140) Group B Strep DNA Negative (Negative) Rhogam given: No Assessment & Plan (1) Anxiety and depression: COMMENT: prozac ordered/not taking. counseling encouraged. vistaril started 28 weeks (2) : QUALIFIERS: Weeks of gestation: 37 weeks Qualified Code(s): Z3A.37 - 37 weeks gestation of COMMENT: GBS neg. nipt and carrier, ntd screen declined.anatomy nl (3) Supervision of high-risk : QUALIFIERS: Trimester: second trimester Qualified Code(s): O09.92 - Supervision of high risk , unspecified, second trimester COMMENT: PRR LEANDRA 09/26/22 Boy [facility] Eitan Marciano (4) History of delivery: COMMENT: 36 week PPROM reocmmend serial cervical lengths (5) Marijuana use: COMMENT: encouraged cessation. random tox (6) Active labor at term: PLAN: Plan Patient presents IAL, plan expectant management for , pitocin/AROM PRN if needed. Pain management: plans epidural. GBS neg. Management of any complications: none I have reviewed the [facility] and made any clinically relevant updates.
--- NOTE | 2022-09-01 05:31 | EX.PCM.OBRPT ---
Assessment & Plan (1) Active labor at term: (2) Anxiety and depression: COMMENT: prozac ordered/not taking. counseling encouraged. vistaril started 28 weeks (3) : QUALIFIERS: Weeks of gestation: 37 weeks Qualified Code(s): Z3A.37 - 37 weeks gestation of COMMENT: GBS neg. nipt and carrier, ntd screen declined.anatomy nl (4) Supervision of high-risk : QUALIFIERS: Trimester: second trimester Qualified Code(s): O09.92 - Supervision of high risk , unspecified, second trimester COMMENT: PRR LEANDRA 09/26/22 A[facility] Eitan Marciano (5) History of delivery: COMMENT: 36 week PPROM reocmmend serial cervical lengths (6) Marijuana use: COMMENT: encouraged cessation. random tox (7) Vaginal delivery: COMMENT: SM avery [place] 37 Maternal Data Information LEANDRA Calculator Estimated Delivery Date Method Current WG Current Estimate 09/19/22 Ultrasound #2 37w 3d Other Estimates 09/28/22 Ultrasound #1 36w 1d Vaginal Delivery Operative Information Date of Procedure: 09/01/22 Pre-Operative Diagnosis: IAL Post-Operative Diagnosis: same Surgery / Procedure Performed: Spontaneous Vaginal Delivery Type of Anesthesia: Epidural Special Medications: none Estimated Blood Loss: 200 Fluids Replaced: crystalloid Findings Description of Procedure: Patient began pushing and delivered the head in the FARHAD presentation. The head was delivered atraumatically . The anterior and posterior shoulders delivered without complication followed by the rest of the and the infant was placed on the maternal abdomen. Delayed cord clamping was employed for approximately 60 seconds. Cord was clamped and cut and gentle traction was applied to the cord and the placenta delivered spontaneously immediately following it was noted to be intact with three-vessel cord. The perineum and vagina were inspected and noted to have no laceration. EBL was 200. Patient and infant tolerated delivery well. Presentation: FARHAD Amniotic Membrane Rupture Type: Artificial Amniotic Fluid Description: Clear Placental Delivery Description: Spontaneous Placenta Disposition: [facility] Cord Vessel Description: 3 Vessels Cord Entanglement: None Infant A Gender: Male Delayed Cord Clamping: Yes Post Vaginal Delivery Medications Given After Delivery: IV Pitocin Episiotomy Description: None Laceration: None Complication Complications: None Procedures Urinary/Genital [id number]: [id number] Vaginal Delivery [facility]
--- NOTE | 2022-09-01 05:34 | DCINST_ITS ---
Discharge Instructions Diet Discharge Diet: No restrictions Activity Discharge Activity: Return to Normal Activity, May Drive, May Shower and May Take a Tub Bath (in 4 weeks) May resume sexual activity in: 6-8 weeks (after seen by OB provider) Weight Bearing Status: Full weight bearing Lifting Restrictions: none Dressing / Incision Call your doctor if you observe: Fever of 101 or Higher, Inability to urinate, Using more than 1 pad per hour (for more than 2 hours in a row or more), Shortness of breath, Dizziness, Chest pain and - (headache not controlled with tylenol, change in vision) Follow Up Care When: in 6 weeks for visit, call the office to make the appointment. If you had elevated blood pressures call the office to be seen within 1 week. Test Results: Test results from this visit will be discussed in further detail at your follow- up appointment, if applicable. Discharge Plan Admission Admit Date/Time: 08/31/22 22:10 Attending Provider: Ailin Ceja Primary Care Provider: Care Physician,Anabell Primary Discharge Orders/Prescriptions Prescriptions: No Action hydroxyzine pamoate [Vistaril] 50 mg capsule 50 mg PO TID-QID PRN (Reason: anxiety) Qty: 60 4RF Classic 28 mg iron- 800 mcg tablet 1 tab PO DAILY Tylenol 1,000 mg PO/SL PRN PRN (Reason: Headache) Referrals / Follow Up: Care Physician,No Primary [Primary Care Provider] - Disposition Disposition (needs filled in before D/C Order can be placed): Home, Self Care
[2022-09-01] MEDS: 0.9% Saline Lock 10 ML Syringe IV (07:33)
[2022-09-01] MEDS: Naproxen 500 MG Tablet PO ×2 (07:36→19:28)
[2022-09-01] MEDS: Prenatal Vits Tablet 1 TABLET PO (12:16)
--- NOTE | 2022-09-01 19:29 | NURSING ---
pt has passed 3 golf ball sized clots today; will continue to monitor.
--- NOTE | 2022-09-01 20:01 | CM.ED ---
Addendum entered by Chiquis Lauren 09/01/22 20:05: SW made [facility]G/WIC referral. FOB is name Marciano Madrid. Original Note: SW Note Mom: Cat Mackenzie [facility]: [place] Control: the Pill Baby: Trisha : 09/01/22 Apgars: 8/9 Weight: 7 #1 ounce Overlock Hemmer: [facility] Breast and Bottle feeding. MOB said that this morning nb latched on good but has been tired since. MOB's other children: Eitan, age 21 months Housing: MOB reports they reside in a house and it is adequate in space. Transportation: MOB reports she can drive and has access to transportation Supplies: MOB reports that nb has bassinet, crib, wanda n play, diapers and clothes for the nb. MOB said that she was able to use items from her previous . Supports: MOB said FOB will be off for one week. MOB said that her mother resides in [place] and grandmother resides in [place] and will be supports. MOB said that FOB's mom resides 5 minutes from her house and is retired so she will be able to offer assistance. Education Level: MOB graduated high school and had some college. No learning issues or delays. Employment:KATY works at [employer]. She plans to take 12 weeks off. MOB said that the nb will go to a sitter and the older child will go to daycare. MOB said that the provider is older and thus didn't think she could manage 2 children so thus they plan to put older child in daycare. Agency Involvement: MOB reports no JFS, WIC or [facility] involvement. MOB works with Chevy De [facility] and she sees him every 3 months, however when she spoke to him on Sunday it was his last day. No legal or CSB issues. FOB: Marciano Tariq Together: 3 years Involved with the nb: Yes Employment: [employer]. Plans to take 1 week off work. Other children: Eitan FOB MH/AOD and DV: KATY voiced no concern or issues and stated she feels safe at home. Maternal MH History:KATY reports that she has ADD and is prescribed Mydayis by her MH provider, Chevy De Leon. MOB said that Adderall does not work well for her. MOB reports when she learned she was she discontinued Maydayis. MOB said that her plan is to try to pump and breast feed as long as possible and that is the number 1 priority and then when she is done she will resume her medication. KATY reports no depression or post depression. KATY said that she had anxiety in the as I was big and and the first was difficult as he was not eating and had to be hospitalized. AKTY reports that she was anxious about if the nb would be early and if they would have to go to [facility]. KATY said now that he is here.. I am good. MOB educated on Shaken Baby, PPD and Safe sleeping. KATY reports she had recreationally done marijuana but quit when she knew she was . BILL asked if patient plans to resume marijuana and she said no. BILL advised that if patient resumes to ensure a safe person is watching the nb and that she smokes outside. KATY is a former smoker, who quit when she learned she was . KATY was interviewed in the room with her and the nb. MOB often looked at the nb and smiled and she appeared to be bonding with nb. MOB engaged in interview easily with good eye contact. BILL provided MOB with [facility]. BILL will make a referral to [facility]/WIC for MOB BILL also called [facility] at [facility] to inquire about MOB's medications. Waiting call back. Plan: Home at discharge Chiquis JUSTICE
[2022-09-02] VITALS (11 sets, daily range): BP systolic 95–143; BP diastolic 58–80; PULSE 54–104; RESP 16; TEMP 36.1–36.9; O2SAT 94–98
--- NOTE | 2022-09-02 07:25 | PCM.PN.OB ---
Subjective Subjective Patient doing well without complaints. Tolerating PO. Ambulating and voiding without difficulty. Feeding well. Denies chest pain, shortness of breath, calf pain/swelling, fevers, chills, lightheadedness. She is requesting to go home today. Objective Data Objective Data Vital Signs: Vital Signs Temp Pulse Resp BP Pulse Ox O2 Del Method 97.1 F L 89 16 104/58 L 95 Room Air 09/02/22 03:40 09/02/22 03:42 09/02/22 03:40 09/02/22 03:42 09/02/22 03:41 09/02/22 03:40 Oxygen Delivery Method Room Air Weight: 196 lb 6.91 oz Body Mass Index (BMI) 33.7 Intake & Output: Intake and Output for Last 24 Hours 08/31/22 09/01/22 09/02/22 23:59 23:59 23:59 Intake Total 502.5 / 502.5 1953.50 / 1953.50 Output Total 100 / 100 1500 / 1500 Balance 402.5 / 402.5 453.50 / 453.50 Lab / Micro Data Result Diagrams: 08/31/22 19:50 ROS Constitutional Constitutional: Denies chills, fatigue, fever(s), poor appetite or weakness Eyes Eyes: Denies blurry vision, change in vision, seeing flashes or spots in vision ENT HEENT: Denies dizziness, headache(s), loss taste/smell or sore throat Cardiovascular Cardiovascular: Denies chest pain, dizziness, dyspnea, irregular heart rhythm, palpitations or rapid heart rate Respiratory/Chest Respiratory/Chest: Denies chest tightness, cough, dyspnea or breast pain Gastrointestinal Gastrointestinal: Denies abdominal pain, constipation or vomiting Genitourinary Genitourinary: Denies dysuria or flank pain Musculoskeletal Musculoskeletal: Denies difficulty walking, joint pain, limited range of motion or numbness Neurologic Neurologic: Denies abnormal movements, abnormal speech, dizziness, numbness, seizure-like activity or syncope Psychiatric Psychiatric: Denies anxiety, behavioral changes, change in appetite, confusion, depression or suicidal thoughts Physical Exam Const alert, oriented x3 and no apparent distress General Appearance: cooperative and comfortable Resp normal respiratory effort Cardio regular rate GI normal to inspection, nondistended, normoactive bowel sounds GI Narrative: uterus is firm below umbilicus Palpation: soft Back/Spine no CVA tenderness and thoraco-lumbar ROM normal Extremity normal to inspection, no clubbing, cyanosis or edema, no calf tenderness and no pedal edema Psych mental status grossly normal, thought process normal, cooperative, affect normal, speech normal, activity/motor behavior normal, denies homicidal ideation and denies suicidal ideation Assessment & Plan (1) Vaginal delivery: COMMENT: CASEY boy [employer] 36 PLAN: Plan s/p PPD #1 1. routine post delivery care 2. breast feeding- support given 3. rh positive 4. rubella immune 5. home today if possible per peds
--- NOTE | 2022-09-02 09:54 | CM.ED ---
BILL called Cristina at [facility]. She confirmed patient is prescribed wellbutrium and mydayis by [facility] at [facility]. Thus, this would be why patient was positive for amphetamines during her first PNC visit per Cristina. No further SW needs at this time. Chiquis JUSTICE
[2022-09-02] MEDS: Naproxen 500 MG Tablet PO (09:55)
[2022-09-02] MEDS: Acetaminophen 500 MG Tablet 1000 MG PO (11:47)
== END 2022-09-02 13:30 | disposition home or self-care (01) | DRG 806 ==
LOC: WPOUT 22:18 → WP 22:18
PROVIDERS: Admitting Provider Obstetrics & Gynecology; Referring Provider Obstetrics & Gynecology; Visit Provider Obstetrics & Gynecology
DX: O99.344 Other mental disorders complicating childbirth (principal); Z37.0 Single live birth; O99.324 Drug use complicating childbirth; F41.9 Anxiety disorder, unspecified; F12.90 Cannabis use, unspecified, uncomplicated; F32.A Depression, unspecified; Z87.891 Personal history of nicotine dependence; Z3A.37 37 weeks gestation of pregnancy; Z87.51 Personal history of pre-term labor
CPT/HCPCS: 59025; 59050; 85025; 86850; 86900; 86901; 99218; 99406; J7120; A4216; G0378; J2405

== ENCOUNTER → 2022-10-13 | Outpatient (CLI) | payer OTHER, SELFPAY ==
[2022-10-13 15:48] LABS: Thyroid Stim Hormone (TSH) 1.67 uIU/mL (0.358-3.74)
[2022-10-15 07:53] LABS: Thyroid Peroxidase AB 33 IU/mL (0-34)
== END | disposition home or self-care (01) ==
LOC: LAB 14:26
PROVIDERS: Referring Provider Obstetrics & Gynecology; Visit Provider Obstetrics & Gynecology
DX: E01.0 Iodine-deficiency related diffuse (endemic) goiter (principal)
CPT/HCPCS: 36415; 84443; 86376

== ENCOUNTER → 2022-11-07 | Outpatient (CLI) | payer OTHER, SELFPAY ==
--- NOTE | 2022-11-07 13:55 | US_ITS ---
STUDY: THYROID ULTRASOUND REASON FOR EXAM: Female, 27 years old. Thyroid screening TECHNIQUE: Ultrasound evaluation of the thyroid was performed with real-time and static matos-scale imaging. COMPARISON: None. FINDINGS: RIGHT LOBE: The right lobe of the thyroid gland measures 4.1 cm 1.6 cm x 1.4 cm. There is a homogeneous echotexture. There are no demonstrated solid, cystic or complex lesions. LEFT LOBE: The left lobe of the thyroid gland measures 4.3 cm x 1 cm x 1.1 cm. There is a homogeneous echotexture. There are no demonstrated solid, cystic or complex lesions. ISTHMUS: The isthmus measures 1.8 mm. The regional lymph nodes are normal. US/Thyroid IMPRESSION: Normal ultrasound examination of the thyroid. Electronically Signed: Gokul Fajardo MD at 14:31 EST ,
== END | disposition home or self-care (01) ==
LOC: US 13:55
PROVIDERS: PCP Family Medicine; Referring Provider Obstetrics & Gynecology; Visit Provider Obstetrics & Gynecology
DX: E01.0 Iodine-deficiency related diffuse (endemic) goiter (principal)
CPT/HCPCS: 76536

== ENCOUNTER → 2023-07-06 | Outpatient (CLI) | payer OTHER, SELFPAY | END | disposition home or self-care (01) | PROVIDERS: PCP Family Medicine; Referring Provider Family Medicine; Visit Provider Family Medicine | DX: H02.829 Cysts of unspecified eye, unspecified eyelid (principal) | CPT/HCPCS: 87070; 87077; 87186; 87205 ==

== ENCOUNTER → 2023-11-22 | Outpatient (CLI) | payer OTHER, SELFPAY ==
--- OUTSIDE RECORDS SUMMARY | 2023-11-22 15:44 | XMS RPT_ITS | CCD ---
Author Name Unknown Address [address] [place] [address] Organization [facility] Care Team Providers Care Hotel Housekeeper Name Role Phone ANN MORENO Unavailable Unavailable JOAQUIM SOLARES Unavailable Unavailable Results Test Name Value Interpretation Reference Range Facil ity Encounters Encounter Date Encounter Type Care Provider Facility Start: 09-16-2017 End: 09-16-2017 Emergency department patient visit ANN MORENO Facil ity:B Payers Date Payer Category Payer Unknown [id number] Progress note 11-23-2021 Note Date & Type Note Facility 11-23-2021 Note HNO ID: [id number] Author: RT Jose(R) Service: Radiology Author Type: Technologist Type: Progress Notes Filed: 11/23/2021 10:41 AM Note Text: Radiology Service Progress Note PATIENT NAME: Cat Mackenzie DATE OF SERVICE: November 23, 2021 TIME: 10:35 AM PATIENT IDENTITY VERIFICATION COMPLETED USING TWO (2) IDENTIFIERS: Name and Date of confirmed by patient verbally. FALL SCREENING: Has the patient had 2 falls in the last year or 1 fall with injury or currently using an Ambulatory Assistive Device (Walker, Cane, Wheelchair, Crutches, etc.)? No PATIENT GENDER DATA: Female. status: : No status: NO. PATIENT RELEVANT IMPLANT DATA REVIEWED: Yes RADIOLOGY DEPARTMENT: General X-ray: Exam(s) Completed: Upper Extremity X-Ray(s): Fingers/Thumb, right small PERIPHERAL IV DATA: Not applicable SIGNED BY: RT Jose(R) November 23, 2021 10:35 AM [facility] Progress note 11-23-2021 Note Date & Type Note Facility 11-23-2021 Note HNO ID: [id number] Author: Adalberto Joshi APRN.LAST PULLER Service: ? Author Type: Nurse Practitioner Type: Progress Notes Filed: 11/23/2021 11:07 AM Note Text: Subjective HPI Nontoxic-appearing female presents urgent care chief complaint finger injury. Duration of symptoms today. Associated symptom of right fifth digit injury. Patient states smashed her fifth digit distal aspect in car door this morning. Presents today for evaluation. Patient states she has been using ice this does help. Denies any other injuries. Denies any decrease sensation. Denies history of finger fracture or surgeries. Past medical history prescription medication use allergies reviewed denies chance of . .Patient presents with: smashed finger in car door: pinky finger right hand this am PAST MEDICAL HISTORY Diagnosis Date - ADD (attention deficit disorder) - Recurrent UTI urosepsis 2011 PAST SURGICAL HISTORY Procedure Laterality Date - CYSTOSCOPY 2017 normal - PAST SURGICAL HISTORY OF Right 2010 Repair of broken right arm ALLERGIES Opioids - Morphine Analogues MEDICATIONS MYDAYIS 37.5 mg CT24 Take 37.5 mg by mouth once daily. vit/iron fum/folic ac (RIGHT STEP VITAMINS ORAL) Take by mouth. FAMILY HISTORY Problem Relation Age of Onset - other (no fam hx of malignancies) Other Social History Tobacco Use - Smoking status: Current Every Day Smoker - Smokeless tobacco: Never Used Vaping Use - Vaping Use: Never used Substance Use Topics - Alcohol use: Not on file - Drug use: Not on file BP 136/84 Pulse 96 Temp 36.4 ?C (97.5 ?F) (Tympanic) Resp 16 Wt 63 kg (139 lb) LMP 12/31/2019 (LMP Unknown) SpO2 98% BMI 24.62 kg/m? Review of Systems Constitutional: Negative for chills, fever and malaise/fatigue. HENT: Negative for congestion, ear discharge, ear pain, sinus pain and sore throat. Eyes: Negative for blurred vision, pain, discharge and redness. Respiratory: Negative for cough, hemoptysis, sputum production, shortness of breath, wheezing and stridor. Cardiovascular: Negative for chest pain. Gastrointestinal: Negative for abdominal pain, diarrhea, nausea and vomiting. Musculoskeletal: Positive for joint pain. Negative for myalgias. Skin: Negative for itching and rash. Neurological: Negative for dizziness and headaches. Objective Physical Exam Constitutional: General: She is not in acute distress. Appearance: She is not diaphoretic. HENT: Head: Normocephalic. Mouth/Throat: Mouth: Mucous membranes are moist. Pharynx: Oropharynx is clear. No oropharyngeal exudate or posterior oropharyngeal erythema. Eyes: Conjunctiva/sclera: Conjunctivae normal. Pupils: Pupils are equal, round, and reactive to light. Cardiovascular: Rate and Rhythm: Normal rate and regular rhythm. Heart sounds: Normal heart sounds. Pulmonary: Effort: Pulmonary effort is normal. No tachypnea, accessory muscle usage or respiratory distress. Breath sounds: Normal breath sounds. No stridor. Abdominal: Palpations: Abdomen is soft. Tenderness: There is no abdominal tenderness. Musculoskeletal: Hands: Cervical back: Normal range of motion and neck supple. No rigidity or tenderness. Comments: Contusion abrasion noted distal aspect fifth digit. Affected area is volar aspect. Neurovascular intact. Full range of motion. Pain with palpation over DIP joint. Lymphadenopathy: Cervical: No cervical adenopathy. Skin: General: Skin is warm and dry. Neurological: Mental Status: She is alert and oriented to person, place, and time. ASSESSMENT/PLAN: 1. Finger injury, right, initial encounter - ICD9: 959.5, ICD10: S69.91XA - XR DIGIT GENERAL 3V FRONTAL/LAT/OBL RIGHT IMPRESSION: ? No acute bony finding. No fractures noted. Wound was cleanse. Mupirocin and bandage applied. Splint applied. Patient was educated on supportive therapies. Patient will follow up with primary care provider as needed. Patient was instructed to immediately proceed to emergency room for any new, worsening, or symptoms lasting longer than anticipated. The patient's clinical presentation is otherwise unremarkable at this time. Based on exam and clinical finding, the patient is stable for discharge. Plan of care was discussed with patient. Patient verbalizes understanding and agrees to plan of care. This note was generated using [employer] software. It may contain errors in wording, punctuation, or spelling. Adalberto Joshi APRN.[facility] Progress note 07-07-2021 Note Date & Type Note Facility 07-07-2021 Note HNO ID: [id number] Author: Skylar R Athy, PA-C Service: ? Author Type: Physician Chuck Wagon Driver Type: Progress Notes Filed: 07/07/2021 8:21 PM Note Text: This note was created using [employer]. Subjective Cat Mackenzie is a 26 year old female. HPI Patient presents with sore throat, bilateral ear pain, fatigue and chills for 1 day. No fever at home. She denies vomiting or diarrhea. Her [id number] and [id number] had URI type symptoms last week. They tested negative for Covid. She denies chest pain or shortness of breath. No significant cough. No change in smell or taste. She is not immunized for Covid. She has not had it previously. Review of Systems Constitutional: Positive for chills and fatigue. HENT: Positive for ear pain and sore throat. Negative for congestion. Respiratory: Negative for cough. Cardiovascular: Negative. Gastrointestinal: Negative. Endocrine: Negative. Genitourinary: Negative. Musculoskeletal: Positive for myalgias. Neurological: Positive for headaches. All other systems reviewed and are negative. PAST MEDICAL HISTORY Diagnosis Date - ADD (attention deficit disorder) - Recurrent UTI urosepsis 2012 Current Outpatient Medications Medication Sig Dispense Refill - MYDAYIS 37.5 mg CT24 Take 37.5 mg by mouth once daily. - vit/iron fum/folic ac (RIGHT STEP VITAMINS ORAL) Take by mouth. (Patient not taking: Reported on 07/07/2021 ) No current facility-administered medications for this visit. PAST SURGICAL HISTORY Procedure Laterality Date - CYSTOSCOPY 2017 normal - PAST SURGICAL HISTORY OF Right 2010 Repair of broken right arm FAMILY HISTORY Problem Relation Age of Onset - other (no fam hx of malignancies) Other Social History Tobacco Use - Smoking status: Current Every Day Smoker - Smokeless tobacco: Never Used Vaping Use - Vaping Use: Never used Substance Use Topics - Alcohol use: Not on file - Drug use: Not on file Objective BP 118/82 Pulse 113 Temp 37.5 ?C (99.5 ?F) Resp 18 Wt 65.1 kg (143 lb 9.6 oz) LMP 12/31/2019 (LMP Unknown) SpO2 98% BMI 25.44 kg/m? Physical Exam Vitals reviewed. Constitutional: Appearance: Normal appearance. HENT: Head: Normocephalic and atraumatic. Right Ear: Tympanic membrane, ear canal and external ear normal. Left Ear: Tympanic membrane, ear canal and external ear normal. Nose: Nose normal. Mouth/Throat: Pharynx: Pharyngeal swelling, oropharyngeal exudate and posterior oropharyngeal erythema present. Tonsils: Tonsillar exudate present. No tonsillar abscesses. 2+ on the right. 2+ on the left. Cardiovascular: Rate and Rhythm: Normal rate and regular rhythm. Heart sounds: Normal heart sounds. Pulmonary: Effort: Pulmonary effort is normal. Breath sounds: Normal breath sounds. Musculoskeletal: Cervical back: Neck supple. Lymphadenopathy: Cervical: Cervical adenopathy present. Skin: General: Skin is warm and dry. Neurological: General: No focal deficit present. Mental Status: She is alert and oriented to person, place, and time. Assessment and Plan ASSESSMENT/PLAN: 1. Sore throat - ICD9: 462, ICD10: J02.9 - Alere Strep Test negative, no culture pending -I did do a Covid to rule out. Discussed if sore throat is not better in 7 days to be seen again. Could potentially test for mono at that point as well if not improving. Red flags discussed. Supportive care discussed. She is agreeable with plan. - STREP A MOLECULAR (POC) - 2019 CORONAVIRUS Skylar Boo PA-C [facility] Progress note 02-21-2021 Note Date & Type Note Facility 02-21-2021 Note HNO ID: [id number] Author: Irineo Solis Service: ? Author Type: Physician Type: Progress Notes Filed: 02/21/2021 5:12 PM Note Text: Patient presents with: Ear Problem: LEFT ear discomfort x 4 days HPI: Feeling left ear pain for 4 days. Positive symptoms: external left ear pain, stinging in the canal, tinnitus, fluid sound in the ear in the morning, Negative symptoms: Cough, Chest pain, Sinus pressure, Nasal Congestion, Rhinorrhea, Post nasal drainage, Fever, otorrhea OTC: ibuprofen Uses qtips. PAST MEDICAL HISTORY Diagnosis Date - ADD (attention deficit disorder) - Recurrent UTI urosepsis 2011 MEDICATIONS: Current Outpatient Medications Medication Sig - vit/iron fum/folic ac (RIGHT STEP VITAMINS ORAL) Take by mouth. No current facility-administered medications for this visit. ALLERGIES: ALLERGIES Allergen Reactions - Opioids - Morphine * Vomiting VITALS: BP 104/64 Pulse 73 Temp 36.9 ?C (98.5 ?F) (Right Tympanic) Resp 16 Wt 75.1 kg (165 lb 9.6 oz) LMP 12/31/2019 (LMP Unknown) SpO2 96% BMI 29.33 kg/m? PHYSICAL EXAM: GEN: Pleasant, in no acute distress. HEENT: PERRL, EOMI, conjunctiva clear Ears: canals clear. TMs without erythema, bulge, or effusion. Otoscope insertion if painful in superior meatus. TMJ palpation does not reproduce the pain for which she presents. Sinuses: non-tender frontal sinus, non-tender maxillary sinuses Throat: moist mucous membranes, no erythema, no exudate Neck: supple, no thyromegaly, no lymphadenopathy HEART: regular rate and rhythm, no murmurs LUNGS: clear to auscultation, no wheezes or crackles, no increased WOB ASSESSMENT/PLAN: 1. Otalgia, left - ICD9: 388.70, ICD10: H92.02 No visible lesion in the canal or external ear. She may apply antibiotic ointment at the meatus. Advised to avoid inserting cotton tipped swabs into the ear canal. Follow up if not resolving. Irineo Solis MD [facility] Summary Purpose Family History No Family History Records FoundNo Family History Records Found Advance Directives No Advanced Directives Records FoundNo Advanced Directives Records Found Additional Source Comments INFORMATION SOURCE (unrecogn ized section and content) DATE CREATED AUTHOR AUTHOR'S ORGANIZ ATION 12/16/2021 [facility] FOR RECORDS PERTAINING TO PATIENTS WHO ARE OR HAVE BEEN ENROLLED IN A CHEMICAL DEPENDENCY/SUBSTANCEABUSE PROGRAM, SOME INFORMATION MAY BE OMITTED. This clinical summary was aggregated from multiple sources. Caution should be exercised in using it in the provision of clinical care. This summary normalizes information from multiple sources, and as a consequence, information in this document may materially change the coding, format and clinical context of patient data. In addition, data may be omitted in some cases. CLINICAL DECISIONS SHOULD BE BASED ON THE PRIMARY CLINICAL RECORDS. [employer] provides no warranty or guarantee of the accuracy or completeness of information in this document.
[2023-12-11 14:51] LABS: HPV Reflexed? NOT INDICATED
== END | disposition home or self-care (01) ==
LOC: LABSPEC 15:29
PROVIDERS: PCP Family Medicine; Referring Provider Obstetrics & Gynecology; Visit Provider Obstetrics & Gynecology
DX: Z12.4 Encounter for screening for malignant neoplasm of cervix (principal)
CPT/HCPCS: 88175; G0145

== ENCOUNTER → 2025-10-02 | Outpatient (CLI) | payer OTHER, SELFPAY ==
--- NOTE | 2025-10-02 15:40 | RAD_ITS ---
PROCEDURE: SKULL LESS THAN 4 VIEWS 10/02/2025 REASON FOR EXAM: DIVOT FRONTAL OF HEAD. TECHNIQUE: Procedure Code: RADSKL Modality: DX Procedure: SKULL LESS THAN 4 VIEWS COMPARISON: None. FINDINGS: BONES: Focal outer table lucency in the parietal region on the lateral view measuring 2.2 x 0.4 cm. No acute fracture. SOFT TISSUES: The soft tissues are unremarkable. RAD/Skull less than 4 Views IMPRESSION: Outer table lucency in the parietal bone on the lateral view, which is nonspeci fic. A CT is recommended to further evaluate. Reading Location: [id number]
== END | disposition home or self-care (01) ==
LOC: MTLAB 15:11 → MTRAD 15:23
PROVIDERS: PCP Family Medicine
DX: M95.2 Other acquired deformity of head (principal)
CPT/HCPCS: 70250